=== PATIENT | female | born 1965 | race Two or more races ===

== ENCOUNTER 2023-07-04 12:35 | Inpatient (IN) | payer OTHER, MEDICAID ==
[~2023-07-04] VITALS: Ht 172.7 cm; Wt 129.0 kg
[2023-07-04] MEDS ORDERED: VANCOMYCIN PER PHARMACY 0 MG IV SCH ×3 (13:15→15:30)
[2023-07-04 13:28] LABS: Basophils # (auto) 0.1 10 ^3/uL (0-0.2); Basophils % (auto) 0.8 % (0.0-2.0); Eosinophils # (auto) 0.1 10 ^3/uL (0-0.8); Hematocrit 39.6 % (36.0-46.0); Hemoglobin 12.9 g/dL (12.2-16.2); Lymphocytes # (auto) 2.7 10 ^3/uL (0.4-5.4); Lymphocytes % (auto) 21.7 % (10.0-50.0); Mean Corpuscular Hemoglobin 27.3 pg (28.0-32.0); Mean Corpuscular Hgb Conc. 32.6 g/dL (32.0-36.0); Mean Corpuscular Volume 83.5 fL (80.0-100.0); Monocytes # (auto) 0.8 10 ^3/uL (0-1.3); Monocytes % (auto) 6.4 % (0.0-12.0); Neutrophils # (auto) 8.6 10 ^3/uL (1.6-8.6); Neutrophils % (auto) 70.1 % (37.0-80.0); Red Blood Cells 4.74 10^6/uL (4.0-5.20); Red Cell Distribution Width 15.9 % (11.8-14.3); White Blood Cell 12.2 10^3/uL (4.4-10.8)
[2023-07-04 13:45] LABS: Alanine Aminotransferase 21 U/L (7-40); Alkaline Phosphatase 219 U/L (46-116); Anion Gap 12 (5-15); Aspartate Aminotransferase 19 U/L (13-40); BUN/Creatinine Ratio 12.1 (10.0-20.0); Blood Urea Nitrogen 12 mg/dL (9-23); Calcium 9.3 mg/dL (8.5-10.1); Carbon Dioxide 23 mmol/L (20-30); Chloride 105 mmol/L (98-107); Glucose 193 mg/dL (74-106); Potassium 3.9 mmol/L (3.5-5.1); Sodium 140 mmol/L (136-145); Total Protein 5.9 g/dL (5.7-8.2)
[2023-07-04 13:47] LABS: Lactic Acid w/Reflex 3.8 mmol/L (0.4-2.0)
[2023-07-04 13:54] LABS: CRP High Sensitivity 7.46 mg/dL (<1.0)
[2023-07-04] MEDS ORDERED: ATOR20TA50 PO (14:23)
[2023-07-04] MEDS ORDERED: INSUINJ2 SC (14:23)
[2023-07-04] MEDS ORDERED: FINE20TA PO (14:23)
[2023-07-04] MEDS ORDERED: HYDR1TAB97 (14:23)
[2023-07-04] MEDS ORDERED: ONDA-188 PO (14:23)
[2023-07-04] MEDS ORDERED: METF-372 PO (14:23)
[2023-07-04] MEDS ORDERED: TIRZ7.5I SC (14:23)
[2023-07-04] MEDS ORDERED: DICL5GEL TOP (14:23)
[2023-07-04] MEDS ORDERED: ALBU108A5 PO (14:23)
[2023-07-04] MEDS ORDERED: ACET300T51 PO (14:23)
[2023-07-04] MEDS ORDERED: PREG200C59 PO (14:23)
[2023-07-04] MEDS ORDERED: PRAS10TA8 PO (14:23)
[2023-07-04] MEDS ORDERED: CONT1KIT21 (14:23)
[2023-07-04] MEDS ORDERED: GLIP5TAB12 PO (14:23)
[2023-07-04] MEDS ORDERED: FURO40TA4 PO (14:23)
[2023-07-04] MEDS ORDERED: LID35TP TOP (14:23)
[2023-07-04] MEDS ORDERED: Tirzepatide (Mounjaro) 7.5 MG INJECTION SC SCH (14:30)
[2023-07-04 14:37] LABS: Erythrocyte Sedimentation Rate 62 mm/hr (0-20)
[2023-07-04] MEDS: PIPERACILLIN-TAZOB 3.375GM 100 ML IV ONE (14:38)
[2023-07-04] MEDS: SODIUM CHLORIDE 0.9% 2,000 ML IV ONE (14:43)
[2023-07-04] MEDS ORDERED: DEXTROSE (50%) 50ML SYRG IV PRN (14:45)
[2023-07-04] MEDS ORDERED: ALBUTEROL SULF 2.5 MG/0.5ML(0.5%) NEB SOLN NEB PRN (14:45)
[2023-07-04] MEDS: SODIUM CHLORIDE 0.9% 1,000 ML IV SCH (15:55)
[2023-07-04 16:05] VITALS: BP 138/76; PULSE 97; RESP 16; TEMP 98.4; O2SAT 97
[2023-07-04 16:26] LABS: INR 0.96 (0.9-1.15); Prothrombin Time 10.1 sec (9.3-11.8)
[2023-07-04] MEDS: InsuLIN REG 1unit/0.01ml Soln (100units/ml) SC SCH (17:30)
[2023-07-04] MEDS: HYDROcodone-ACET 5/325MG TAB PO PRN (18:34)
[2023-07-04 18:55] VITALS: O2SAT 97
[2023-07-04 20:25] LABS: Lactic Acid w/Reflex 2.4 mmol/L (0.4-2.0)
[2023-07-04 20:30] VITALS: PULSE 80; RESP 18; O2SAT 96
[2023-07-04] MEDS: MORPHINE SULFATE INJ 2 MG/ml SYRG IV ONE (20:43)
[2023-07-04 22:00] VITALS: BP 127/76; PULSE 80; RESP 18; TEMP 97.9; O2SAT 96
[2023-07-04] MEDS: PREGABALIN 25 MG CAP PO SCH (22:00)
[2023-07-04] MEDS: PREGABALIN CAPSULE 75 MG CAP PO SCH (23:59)
[2023-07-05] VITALS (9 sets, daily range): BP systolic 103–131; BP diastolic 59–70; PULSE 70–104; RESP 17–20; TEMP 97.6–98.6; O2SAT 93–97
[2023-07-05] MEDS: ASCORBIC ACID 500 MG TAB PO SCH (00:01)
[2023-07-05] MEDS: ATORVASTATIN 20 MG TAB PO SCH (00:01)
[2023-07-05] MEDS: ACCU-CHEK COMFORT CURVE STRIP VI SCH (00:02)
[2023-07-05] MEDS: VANCOMYCIN 1GM/200ML 200 ML IV ONE (00:02)
[2023-07-05] MEDS: MORPHINE SULFATE INJ 2 MG/ml SYRG IV PRN (00:24)
[2023-07-05] MEDS: PIPERACILLIN-TAZOB 3.375GM 100 ML IV SCH (02:27)
[2023-07-05 06:55] LABS: Alanine Aminotransferase 20 U/L (7-40); Alkaline Phosphatase 187 U/L (46-116); Anion Gap 9 (5-15); BUN/Creatinine Ratio 12.7 (10.0-20.0); Blood Urea Nitrogen 10 mg/dL (9-23); Calcium 8.7 mg/dL (8.5-10.1); Carbon Dioxide 23 mmol/L (20-30); Chloride 104 mmol/L (98-107); Glucose 171 mg/dL (74-106); Potassium 3.3 mmol/L (3.5-5.1); Sodium 136 mmol/L (136-145)
[2023-07-05 06:56] LABS: Albumin 3.7 g/dL (3.2-4.8); Aspartate Aminotransferase 19 U/L (13-40)
[2023-07-05 06:57] LABS: Bilirubin, Total 1.2 mg/dL (0.2-1.0); Total Protein 6.1 g/dL (5.7-8.2)
[2023-07-05 08:36] LABS: Basophils # (auto) 0.1 10 ^3/uL (0-0.2); Hemoglobin 11.1 g/dL (12.2-16.2); Monocytes # (auto) 0.8 10 ^3/uL (0-1.3); Monocytes % (auto) 8.2 % (0.0-12.0); Red Cell Distribution Width 15.9 % (11.8-14.3)
[2023-07-05 08:38] LABS: Basophils % (auto) 0.7 % (0.0-2.0); Eosinophils # (auto) 0.1 10 ^3/uL (0-0.8); Eosinophils % (auto) 1.4 % (0.0-7.0); Hematocrit 33.6 % (36.0-46.0); Lymphocytes % (auto) 19.8 % (10.0-50.0); Mean Corpuscular Hemoglobin 27.3 pg (28.0-32.0); Mean Corpuscular Hgb Conc. 32.9 g/dL (32.0-36.0); Mean Corpuscular Volume 82.8 fL (80.0-100.0); Neutrophils % (auto) 69.9 % (37.0-80.0); Nucleated Red Blood Cells % 0.1 %; Red Blood Cells 4.06 10^6/uL (4.0-5.20)
[2023-07-05] MEDS: FINERENONE 20 MG PO SCH (10:00)
[2023-07-05] MEDS: PRASUGREL HCL 10 MG TAB PO SCH (10:14)
[2023-07-05] MEDS: ENOXAPARIN SOD 40 MG/0.4 ML SYRINGE SC SCH (10:15)
[2023-07-05] MEDS: MULTIPLE VITAMIN TAB PO SCH (10:15)
[2023-07-05] MEDS: ZINC SULFATE 220mg CAP or TAB PO SCH (10:15)
[2023-07-05] MEDS: VANCOMYCIN 1GM/200ML 200 ML IV SCH (11:27)
[2023-07-05] MEDS: POTASSIUM CHL 20 Meq TABLET PO ONE (13:54)
[2023-07-05] MEDS ORDERED: HYDR-4795 PO (15:43)
[2023-07-05] MEDS ORDERED: POTA1TAB61 PO (15:44)
[2023-07-05] MEDS: DAKINS QUARTER STR 0.125% (NaHypochlorite) 473 ML TOPICAL SOL TOP SCH (22:21)
[2023-07-06] VITALS (9 sets, daily range): BP systolic 103–149; BP diastolic 56–94; PULSE 75–88; RESP 17–19; TEMP 97.2–99; O2SAT 95–97
[2023-07-06] MEDS: VANCOMYCIN 1GM/200ML 200 ML IV ONE (09:10)
[2023-07-06] MEDS: VANCOMYCIN 1GM/200ML 200 ML IV SCH (21:24)
[2023-07-07] VITALS (8 sets, daily range): BP systolic 114–143; BP diastolic 73–87; PULSE 67–80; RESP 17–19; TEMP 97.5–98.3; O2SAT 95–97
[2023-07-07] MEDS ORDERED: MISCCAP PO (15:23)
[2023-07-08] MEDS: VANCOMYCIN 1GM/200ML 200 ML IV SCH (01:11)
[2023-07-08] MEDS: ACETAMINOPHEN 325 MG TAB PO PRN (04:12)
[2023-07-08 05:00] VITALS: BP 121/65; PULSE 56; RESP 18; TEMP 97.5; O2SAT 96
[2023-07-08 08:00] VITALS: BP 112/56; PULSE 64; RESP 17; TEMP 97.5; O2SAT 96
[2023-07-08 09:00] VITALS: BP_SYST 112; BP_SYST 145; BP_DIAS 56; BP_DIAS 76; PULSE 64; PULSE 82; RESP 16; RESP 17; TEMP 97.5; TEMP 97.7; O2SAT 94; O2SAT 96
[2023-07-08 12:55] VITALS: BP 118/61; PULSE 62; RESP 18; TEMP 97.6; O2SAT 97
[2023-07-08 16:45] VITALS: BP 126/56; PULSE 71; RESP 18; TEMP 97.6; O2SAT 96
[2023-07-08 22:00] VITALS: BP 152/78; PULSE 76; RESP 20; TEMP 97.5; O2SAT 95
[2023-07-09] VITALS (9 sets, daily range): BP systolic 119–143; BP diastolic 57–89; PULSE 57–83; RESP 16–18; TEMP 97.4–98.1; O2SAT 94–98
[2023-07-09 06:29] LABS: Basophils # (auto) 0 10 ^3/uL (0-0.2); Basophils % (auto) 0.8 % (0.0-2.0); Eosinophils # (auto) 0.1 10 ^3/uL (0-0.8); Eosinophils % (auto) 2.2 % (0.0-7.0); Hematocrit 36.8 % (36.0-46.0); Hemoglobin 11.9 g/dL (12.2-16.2); Lymphocytes # (auto) 2.5 10 ^3/uL (0.4-5.4); Lymphocytes % (auto) 37.9 % (10.0-50.0); Mean Corpuscular Hemoglobin 27.1 pg (28.0-32.0); Mean Corpuscular Hgb Conc. 32.5 g/dL (32.0-36.0); Mean Corpuscular Volume 83.6 fL (80.0-100.0); Monocytes # (auto) 0.4 10 ^3/uL (0-1.3); Monocytes % (auto) 6.8 % (0.0-12.0); Neutrophils # (auto) 3.4 10 ^3/uL (1.6-8.6); Neutrophils % (auto) 52.3 % (37.0-80.0); Nucleated Red Blood Cells % 0.3 %; Red Cell Distribution Width 15.4 % (11.8-14.3); White Blood Cell 6.5 10^3/uL (4.4-10.8)
[2023-07-09 06:41] LABS: Chloride 111 mmol/L (98-107); Potassium 3.6 mmol/L (3.5-5.1); Sodium 141 mmol/L (136-145)
[2023-07-09 06:42] LABS: Anion Gap 8 (5-15); Carbon Dioxide 22 mmol/L (20-30)
[2023-07-09 06:43] LABS: Calcium 8.8 mg/dL (8.7-10.4)
[2023-07-09 06:47] LABS: Glucose 171 mg/dL (74-106)
[2023-07-09 06:48] LABS: BUN/Creatinine Ratio 7.3 (10.0-20.0); Blood Urea Nitrogen 6 mg/dL (9-23); Magnesium 1.9 mg/dL (1.6-2.6)
[2023-07-10 05:00] VITALS: BP 152/86; PULSE 73; RESP 16; TEMP 98.4; O2SAT 97
[2023-07-10 06:21] LABS: Basophils # (auto) 0.1 10 ^3/uL (0-0.2); Basophils % (auto) 0.9 % (0.0-2.0); Eosinophils # (auto) 0.1 10 ^3/uL (0-0.8); Eosinophils % (auto) 1.9 % (0.0-7.0); Hematocrit 36.8 % (36.0-46.0); Lymphocytes # (auto) 2.5 10 ^3/uL (0.4-5.4); Lymphocytes % (auto) 35.5 % (10.0-50.0); Mean Corpuscular Hemoglobin 27.3 pg (28.0-32.0); Mean Corpuscular Hgb Conc. 32.7 g/dL (32.0-36.0); Mean Corpuscular Volume 83.5 fL (80.0-100.0); Monocytes # (auto) 0.4 10 ^3/uL (0-1.3); Monocytes % (auto) 5.5 % (0.0-12.0); Neutrophils % (auto) 56.2 % (37.0-80.0); Nucleated Red Blood Cells % 0.1 %; Red Blood Cells 4.41 10^6/uL (4.0-5.20); Red Cell Distribution Width 15.5 % (11.8-14.3); White Blood Cell 7.2 10^3/uL (4.4-10.8)
[2023-07-10 06:31] LABS: Alanine Aminotransferase 46 U/L (7-40); Alkaline Phosphatase 248 U/L (46-116); Anion Gap 8 (5-15); Aspartate Aminotransferase 31 U/L (13-40); BUN/Creatinine Ratio 8.6 (10.0-20.0); Blood Urea Nitrogen 7 mg/dL (9-23); Calcium 9.2 mg/dL (8.5-10.1); Carbon Dioxide 24 mmol/L (20-30); Chloride 111 mmol/L (98-107); Glucose 197 mg/dL (74-106); INR 0.98 (0.9-1.15); Partial Thromboplastin Time 29.1 SEC (24.5-34.5); Potassium 3.6 mmol/L (3.5-5.1); Prothrombin Time 10.3 sec (9.3-11.8); Sodium 143 mmol/L (136-145)
[2023-07-10 06:32] LABS: Albumin 3.6 g/dL (3.2-4.8); Bilirubin, Total 0.4 mg/dL (0.2-1.0); Total Protein 6.1 g/dL (5.7-8.2)
[2023-07-10 07:55] LABS: Urine Bacteria NONE SEEN /hpf (None Seen); Urine Blood 1+ /uL (Negative); Urine Clarity Clear (Clear); Urine Color Colorless (Yellow); Urine Protein, UAD Negative (Negative); Urine Specific Gravity 1.013 (1.001-1.035); Urine Urobilinogen Normal (Negative); Urine WBC 1 /hpf (0 - 5); Urine pH 5.5 (5.0-8.0)
[2023-07-10 09:08] VITALS: BP 150/82; PULSE 67; RESP 21; TEMP 97.5; O2SAT 96
[2023-07-10 13:00] VITALS: BP 134/66; PULSE 66; RESP 20; TEMP 97.9; O2SAT 96
[2023-07-10] MEDS ORDERED: GLYCOPYRROLATE 0.2 MG/ML 1ML VIAL ONE (13:28)
[2023-07-10] MEDS ORDERED: PROPOFOL 10 MG/ML 20 ML IV ONE (13:28)
[2023-07-10] MEDS ORDERED: MIDAZOLAM HCL 2MG/2ML 2ml VIAL (1mg/ml) ONE (13:28)
[2023-07-10] MEDS ORDERED: fentaNYL CITRATE 100 MCG/2 ML VL ONE (13:28)
[2023-07-10] MEDS ORDERED: ONDANSETRON HCL 4 MG/2 ML VIAL ONE (13:28)
[2023-07-10] MEDS: LIDOCAINE 1% (LOCAL ANESTH.) PF 5ml SDV ID ONE (13:45)
[2023-07-10] MEDS ORDERED: KETOROLAC TROMETH 30 MG/ML 1ML VIAL ONE (15:33)
[2023-07-10] MEDS ORDERED: MEPERIDINE HCL (25 MG/ML) 1ML VIAL ONE (15:33)
[2023-07-10 15:40] VITALS: PULSE 79; RESP 16; O2SAT 99
[2023-07-10] MEDS ORDERED: ONDANSETRON HCL 4 MG/2 ML VIAL IV PRN (16:00)
[2023-07-10] MEDS ORDERED: HYDROmorphone HCL 2 MG/ML VL/or syr IV PRN (16:00)
[2023-07-10] MEDS: HYDROmorphone HCL 2 MG/ML VL/or syr IV ONE ×2 (16:10→16:25)
[2023-07-10] MEDS ORDERED: KETAMINE 50mg/ML 1ml syringe IV ONE (16:38)
[2023-07-10 20:00] VITALS: BP 128/66; PULSE 76; RESP 17; TEMP 97.8; O2SAT 93
[2023-07-10] MEDS: FLORASTOR (S. BOULARDII) 250 MG CAP PO SCH (21:44)
[2023-07-10] MEDS: SODIUM CHLOR 0.9% PF (SALINE LOCK) 10ML VIAL/SYR IV SCH (21:45)
[2023-07-10 22:00] VITALS: BP 128/66; PULSE 76; RESP 17; TEMP 97.8; O2SAT 93
[2023-07-11] MEDS: ACCU-CHEK COMFORT CURVE STRIP VI ONE (00:19)
[2023-07-11] MEDS: CYCLOBENZAPRINE HCL 10 MG TAB ONE (00:19)
[2023-07-11] MEDS: CYCLOBENZAPRINE HCL 10 MG TAB PO ONE (00:19)
[2023-07-11 05:00] VITALS: BP 120/59; PULSE 72; RESP 18; TEMP 97.4; O2SAT 94
[2023-07-11 09:00] VITALS: BP 115/66; PULSE 68; RESP 18; TEMP 97.9; O2SAT 94
[2023-07-11 13:00] VITALS: BP 131/62; PULSE 68; RESP 20; TEMP 98; O2SAT 96
[2023-07-11] MEDS ORDERED: DEXTROSE (50%) 50ML SYRG IV PRN (13:45)
[2023-07-11] MEDS: MORPHINE SULFATE INJ 2 MG/ml SYRG IV ONE (14:14)
[2023-07-11 17:00] VITALS: BP 120/60; PULSE 74; RESP 18; TEMP 98.4; O2SAT 96
[2023-07-11] MEDS: InsuLIN REG 1unit/0.01ml Soln (100units/ml) SC SCH ×2 (18:33→23:39)
[2023-07-11] MEDS: ACCU-CHEK COMFORT CURVE STRIP VI SCH (18:33)
[2023-07-11 22:00] VITALS: BP 128/66; PULSE 80; RESP 19; TEMP 97.8; O2SAT 96
[2023-07-12 05:00] VITALS: BP 133/64; PULSE 63; RESP 20; TEMP 97.6; O2SAT 95
[2023-07-12 07:29] LABS: Alanine Aminotransferase 34 U/L (7-40); Alkaline Phosphatase 220 U/L (46-116); Calcium 9.3 mg/dL (8.5-10.1); Carbon Dioxide 26 mmol/L (20-30); Chloride 109 mmol/L (98-107); Glucose 178 mg/dL (74-106)
[2023-07-12 07:30] LABS: Anion Gap 8 (5-15); BUN/Creatinine Ratio 12.2 (10.0-20.0); Blood Urea Nitrogen 9 mg/dL (9-23); Potassium 3.5 mmol/L (3.5-5.1); Sodium 143 mmol/L (136-145)
[2023-07-12 07:31] LABS: Albumin 3.7 g/dL (3.2-4.8); Aspartate Aminotransferase 19 U/L (13-40); Bilirubin, Total 0.6 mg/dL (0.2-1.0); Total Protein 6.2 g/dL (5.7-8.2)
[2023-07-12 08:00] VITALS: PULSE 59; RESP 18; O2SAT 96
[2023-07-12 09:00] VITALS: BP 129/61; PULSE 59; RESP 18; TEMP 98.7; O2SAT 96
[2023-07-12] MEDS: DAPTOMYCIN IV SCH (10:00)
[2023-07-12] MEDS: OXYCODONE W/ ACETAMINOPHEN 5/325MG TABLET PO PRN (10:32)
[2023-07-12] MEDS ORDERED: SACC1CAP3 PO (11:49)
[2023-07-12] MEDS ORDERED: OXYC-963 PO (11:49)
[2023-07-12] MEDS: DAPTOmycin 1,000 MG in SODIUM CHL 0.9% 50 ML IV SCH (11:51)
[2023-07-12] MEDS ORDERED: AMPICILLIN & SULBACTAM SODIUM 3 GM in SODIUM CHL 0.9% 100 ML IV SCH (12:45)
[2023-07-12 13:00] VITALS: BP 133/78; PULSE 73; RESP 18; TEMP 97.9; O2SAT 94
[2023-07-12] MEDS: AMPICILLIN & SULBACTAM SODIUM 3 GM in SODIUM CHL 0.9% 100 ML IV SCH (14:42)
[2023-07-12 17:00] VITALS: BP 148/78; PULSE 78; RESP 18; TEMP 97.4; O2SAT 96
[2023-07-12 22:00] VITALS: BP 164/78; PULSE 77; RESP 18; TEMP 97.8; O2SAT 95
[2023-07-13 05:00] VITALS: BP 112/57; PULSE 62; RESP 18; TEMP 97.5; O2SAT 95
[2023-07-13 08:00] VITALS: PULSE 60; RESP 18
[2023-07-13 09:00] VITALS: BP 122/82; PULSE 80; RESP 18; TEMP 97.8; O2SAT 95
[2023-07-13 12:20] VITALS: BP 126/64; PULSE 61; RESP 18; TEMP 97.7; O2SAT 97
[2023-07-13 16:50] VITALS: BP 129/64; PULSE 67; RESP 18; TEMP 97.7; O2SAT 96
== END 2023-07-13 17:54 | disposition home health service (06) | DRG 622 ==
LOC: ER 12:35 → OVERFLOW 14:18 → CENTRAL 18:25
PROVIDERS: ADMIT Nurse Practitioner Family; ATTEND Nurse Practitioner Acute Care
PROC: 05HY33Z Insertion of Infusion Device into Upper Vein, Percutaneous Approach (ICD-10-PCS; 2023-07-10)
PROC: 0JBR0ZZ Excision of Left Foot Subcutaneous Tissue and Fascia, Open Approach (ICD-10-PCS; principal; 2023-07-12)
DX: E11.69 Type 2 diabetes mellitus with other specified complication (principal); A41.9 Sepsis, unspecified organism; M86.672 Other chronic osteomyelitis, left ankle and foot; L03.116 Cellulitis of left lower limb; L97.429 Non-pressure chronic ulcer of left heel and midfoot with unspecified severity; Z68.41 Body mass index [BMI] 40.0-44.9, adult; E11.621 Type 2 diabetes mellitus with foot ulcer; L97.529 Non-pressure chronic ulcer of other part of left foot with unspecified severity; I10 Essential (primary) hypertension; E66.01 Morbid (severe) obesity due to excess calories; E11.65 Type 2 diabetes mellitus with hyperglycemia; E78.5 Hyperlipidemia, unspecified; Z82.3 Family history of stroke; Z82.49 Family history of ischemic heart disease and other diseases of the circulatory system; Z83.3 Family history of diabetes mellitus; Z90.710 Acquired absence of both cervix and uterus; Z88.8 Allergy status to other drugs, medicaments and biological substances
CPT/HCPCS: 36415; 36569; 71045; 73718; 80048; 80053; 80202; 81001; 82565; 82962; 83036; 83605; 83735; 83880; 84484; 85025; 85610; 85652; 85730; 86141; 86850; 86900; 86901; 87040; 87070; 87075; 87077; 87186; 87205; 93926; G0378; J1815; J1885; J2250; J2405; J2543; J2704

== ENCOUNTER → 2023-09-19 | Outpatient (CLI) | payer OTHER, MEDICAID ==
[~2023-09-19] MED LIST: ACET300T51 PO; ALBU108A5 PO; ATOR20TA50 PO; CONT1KIT21; DICL5GEL TOP; FINE20TA PO; FURO40TA4 PO; GLIP5TAB21 PO; HYDR-4795 PO; INSUINJ2 SC; LID35TP TOP; METF-372 PO; MISCCAP PO; ONDA-188 PO; OXYC-963 PO; POTA-215 PO; PRAS10TA8 PO; PREG200C36 PO; SACC1CAP3 PO; TIRZ7.5I SC
== END | disposition home or self-care (01) ==
LOC: LAB 08:16
PROVIDERS: ATTEND Podiatrist
DX: E11.42 Type 2 diabetes mellitus with diabetic polyneuropathy (principal)
CPT/HCPCS: 87077; 87186; 87205

== ENCOUNTER → 2023-11-08 | Outpatient (CLI) | payer OTHER ==
[~2023-11-08] VITALS: Ht 172.7 cm; Wt 117.9 kg
[~2023-11-08] MED LIST changes: +ADENOSINE 90 MG/30 ML INJ IV ONE; +ADENOSINE 99 MG in GIVE UN-DILUTED 0 ML IV ONE
== END | disposition home or self-care (01) ==
LOC: Rad HDHVI 09:46
PROVIDERS: ATTEND Internal Medicine Cardiovascular Disease
DX: I11.0 Hypertensive heart disease with heart failure (principal); I25.110 Atherosclerotic heart disease of native coronary artery with unstable angina pectoris; R07.9 Chest pain, unspecified; I25.2 Old myocardial infarction; R42 Dizziness and giddiness; J96.10 Chronic respiratory failure, unspecified whether with hypoxia or hypercapnia; J44.9 Chronic obstructive pulmonary disease, unspecified; E11.51 Type 2 diabetes mellitus with diabetic peripheral angiopathy without gangrene; E11.621 Type 2 diabetes mellitus with foot ulcer; E78.00 Pure hypercholesterolemia, unspecified; Z82.49 Family history of ischemic heart disease and other diseases of the circulatory system
CPT/HCPCS: 78452; 93005; 96374; 96375; A9500; J0153

== ENCOUNTER → 2023-11-12 | Outpatient (CLI) | payer OTHER ==
[~2023-11-12] MED LIST changes: -ADENOSINE 90 MG/30 ML INJ IV ONE; -ADENOSINE 99 MG in GIVE UN-DILUTED 0 ML IV ONE
== END | disposition home or self-care (01) ==
LOC: Rad HDHVI 15:57
PROVIDERS: ATTEND Internal Medicine Cardiovascular Disease
DX: I34.81 Nonrheumatic mitral (valve) annulus calcification (principal); R07.9 Chest pain, unspecified; R42 Dizziness and giddiness
CPT/HCPCS: 93306

== ENCOUNTER → 2024-06-05 | Outpatient (CLI) | payer OTHER, MEDICAID ==
[2024-06-05 15:49] LABS: Basophils # (auto) 0.1 10 ^3/uL (0-0.2); Basophils % (auto) 1.2 % (0.0-2.0); Eosinophils # (auto) 0.2 10 ^3/uL (0-0.8); Eosinophils % (auto) 1.3 % (0.0-7.0); Hematocrit 43.4 % (36.0-46.0); Hemoglobin 14.3 g/dL (12.2-16.2); Lymphocytes # (auto) 3.8 10 ^3/uL (0.4-5.4); Lymphocytes % (auto) 31.7 % (10.0-50.0); Mean Corpuscular Hemoglobin 28.4 pg (28.0-32.0); Mean Corpuscular Volume 85.9 fL (80.0-100.0); Monocytes # (auto) 0.5 10 ^3/uL (0-1.3); Monocytes % (auto) 4.4 % (0.0-12.0); Neutrophils # (auto) 7.3 10 ^3/uL (1.6-8.6); Neutrophils % (auto) 61.4 % (37.0-80.0); Nucleated Red Blood Cells % 0.2 %; Platelet Count (auto) 288 10^3/uL (140-450); Red Blood Cells 5.06 10^6/uL (4.0-5.20); Red Cell Distribution Width 15.3 % (11.8-14.3); White Blood Cell 11.9 10^3/uL (4.4-10.8)
[2024-06-05 16:13] LABS: Alanine Aminotransferase 30 U/L (7-40); Albumin 4.6 g/dL (3.2-4.8); Anion Gap 10 (5-15); Aspartate Aminotransferase 27 U/L (13-40); BUN/Creatinine Ratio 10.5 (10.0-20.0); Bilirubin, Total 0.9 mg/dL (0.2-1.0); Blood Urea Nitrogen 11 mg/dL (9-23); Calcium 10.1 mg/dL (8.7-10.4); Carbon Dioxide 24 mmol/L (20-31); Potassium 4.4 mmol/L (3.5-5.1); Sodium 142 mmol/L (136-145); Total Protein 7.2 g/dL (5.7-8.2)
[2024-06-05 16:22] LABS: Alkaline Phosphatase 172 U/L (46-116); Chloride 108 mmol/L (98-107); Glucose 113 mg/dL (74-106)
== END | disposition home or self-care (01) ==
LOC: LAB 15:27
PROVIDERS: ATTEND Podiatrist
DX: E11.9 Type 2 diabetes mellitus without complications (principal)
CPT/HCPCS: 36415; 80053; 85025

== ENCOUNTER 2024-12-31 13:56 | Outpatient (CLI) | payer OTHER, MEDICAID | END 2024-12-31 17:00 | disposition home or self-care (01) | LOC: Rad HDHVI 13:56 | PROVIDERS: ATTEND Internal Medicine Cardiovascular Disease | DX: I51.7 Cardiomegaly (principal); R42 Dizziness and giddiness | CPT/HCPCS: 93306 ==

== ENCOUNTER 2025-01-04 13:48 | Outpatient (CLI) | payer OTHER, MEDICAID ==
[~2025-01-04] VITALS: Ht 172.7 cm; Wt 113.4 kg
[2025-01-04] MEDS ORDERED: ADENOSINE 90 MG/30 ML INJ IV ONE (14:15)
[2025-01-04] MEDS ORDERED: ADENOSINE 95 MG in GIVE UN-DILUTED 0 ML IV ONE (16:45)
== END 2025-01-04 17:00 | disposition home or self-care (01) ==
LOC: Rad HDHVI 13:48
PROVIDERS: ATTEND Internal Medicine Cardiovascular Disease
DX: I25.10 Atherosclerotic heart disease of native coronary artery without angina pectoris (principal); I13.0 Hypertensive heart and chronic kidney disease with heart failure and stage 1 through stage 4 chronic kidney disease, or unspecified chronic kidney disease; I50.32 Chronic diastolic (congestive) heart failure; E11.22 Type 2 diabetes mellitus with diabetic chronic kidney disease; N18.9 Chronic kidney disease, unspecified; E11.42 Type 2 diabetes mellitus with diabetic polyneuropathy; J44.9 Chronic obstructive pulmonary disease, unspecified; I25.2 Old myocardial infarction; E78.00 Pure hypercholesterolemia, unspecified; R07.89 Other chest pain; R42 Dizziness and giddiness; Z82.49 Family history of ischemic heart disease and other diseases of the circulatory system
CPT/HCPCS: 78452; 93017; A9500; J0153

== ENCOUNTER 2025-02-11 22:57 | Inpatient (IN) | payer MEDICARE, MEDICAID ==
[~2025-02-11] VITALS: Ht 172.7 cm; Wt 116.6 kg
[2025-02-11] MEDS: SODIUM CHLORIDE 0.9% 1,000 ML IV ONE (01:15)
[2025-02-11] MEDS: CEFEPIME 2GM/50ML NS 50 ML IV ONE (02:15)
[2025-02-11] MEDS: VANCOMYCIN 1GM/250ML KIT 250 ML IV SCH (02:30)
[2025-02-11] MEDS ORDERED: VANCOMYCIN PER PHARMACY 0 MG IV SCH (23:15)
--- NOTE | 2025-02-11 23:25 | ED.PDOC ---
Back pain HPI HPI Comments 59-year-old female with diabetes mellitus, hypertension, hyperlipidemia, CAD status post SANDRA, multiple I and D's left foot, osteomyelitis, recent Left foot first metatarsal osteotomy (35764), Left foot EHL tenotomy (08715) by Dr. Reynolds 02/03/25 presented to the ER with a chief complaint of left lower extremity swelling, pain for the past day. Patient recently completed her doxycycline p.o. therapy, she started experiencing lower extremity swelling, intractable pain and worsening redness of the past day. Associated symptoms include drainage which is purulent from the 1st metatarsal base, patient is under palliative care at home. She denies fever, chills, nausea, vomiting, shortness of breath or chest pain at this time. She also experienced a fall in the past week, and landed on her coccyx, did not hit her head, reports lower back pain but is able to ambulate. Reports being dizzy and lightheaded but did not lose consciousness. Left lower extremity swollen, erythematous with draining wound at the base of the 1st MTP. Passive and active range of motion intact without pain. No sensation in the lower extremity up to the level of knee but motor function is intact. Warmth noted. On arrival to the ER, patient was tachycardic, saturating 93 on room air. IV fluids, blood and wound cultures, CBC, CMP, IV antibiotics started. Chief Complaint: Lower Extremity Time Seen by MD: 22:59 Primary Care Provider: DEACON Reviewed Notes: Nurses Notes Allergies: Coded Allergies: Gabapentin (Verified Allergy, Severe, 07/04/23) Hydrochlorothiazide (Verified Allergy, Severe, 07/05/23) Home Meds Active Scripts Yeast (S. Boulardii)(S. Cerevi (Probiotic) 250 Mg Cap, 250 MG PO DAILY for 30 Days, #30 CAP Prov:SALCHEOONICKERSON VIDEO MACHINES MECHANIC 07/12/23 Oxycodone W/ Acetaminophen (Oxycodone/Acetaminophen 10-300 mg) 1 Tab Tab, 1 TAB PO Q6HP PRN for 5 Days, #20 TAB Prov:SALBINO,NICKERSON VIDEO MACHINES MECHANIC 07/12/23 Reported Medications Probiotic Product (Probiotic Blend) 1 Cap Cap, 1 CAP PO DAILY, CAP 07/07/23 Potassium Chloride (Klor-Con M10) 10 Meq Tab, 1 TAB PO DAILY 07/05/23 Hydrocodone-Acetaminophen (Hydrocodone Bitartrate/AC 7.5-325 mg) 1 Tab Tab, 1 TAB PO TID PRN 07/05/23 Glipizide (Glipizide) 5 Mg Tab, 1 TAB PO BID 07/04/23 Furosemide (Furosemide) 40 Mg Tab, 1 TAB PO DAILY 07/04/23 Acetaminophen W/ Codeine (Acetaminophen/Codeine) 1 Tab Tab, 1 TAB PO Q6HR PRN for Post-op Pain 07/04/23 Ondansetron HCl (Ondansetron Hydrochloride) 4 Mg Tab, 1 TAB PO BID 07/04/23 Tirzepatide (Mounjaro) 7.5 Mg/0.5 Ml Inj, 7.5 MG SC QWEEKLY 07/04/23 Finerenone (Kerendia) 20 Mg Tab, 1 TAB PO DAILY 07/04/23 Prasugrel HCl (Prasugrel) 10 Mg Tab, 1 TAB PO DAILY 07/04/23 Metformin Hydrochloride (Metformin Hcl) 1,000 Mg Tab, 1 TAB PO BID 07/04/23 Lidocaine Hcl (Lidocaine) 5 % Oin, 1 APPLIC TOP QID Apply 2-3 grams topically to the affected area four times daily 07/04/23 Atorvastatin Calcium (ATORVASTATIN CALCIUM) 20 Mg Tab, 1 TAB PO DAILY 07/04/23 Albuterol Sulfate (Albuterol Sulfate Hfa) 108 Mcg/Act Aer, 2 PUFF PO Q6-8HR PRN 07/04/23 Insulin NPH (Human) (Isophane) (Humulin N) 100 Unit/Ml Inj, 95 UNIT SC DAILY 07/04/23 Continuous Blood Glucose Syste (Freestyle Leroy 2/Sensor/) 1 Kit Kit 07/04/23 Diclofenac Sodium (Actinic Ker (Diclofenac Sodium) 3 % Gel, 1 APPLIC TOP BID Apply 2-3 grams topically to the affected area twice daily as needed 07/04/23 Pregabalin (Pregabalin) 200 Mg Cap, 1 CAP PO TID 07/04/23 Information Source: Patient, Relative (Child) Mode of Arrival: Wheelchair Past Medical History PAST MEDICAL HISTORY: DM, HTN Past Medical History (Other): Left foot osteomyelitis and I and D Constitutional: denies: chills, diaphoresis, fatigue, fever, malaise, sweats, weakness, others EENTM: denies: blurred vision, double vision, ear bleeding, ear discharge, ear drainage, ear pain, ear ringing, eye pain, eye redness, hearing loss, mouth pain, mouth swelling, nasal discharge, nose bleeding, nose congestion, nose pain, photophobia, tearing, throat pain, throat swelling, voice changes, others Respiratory: denies: cough, hemoptysis, orthopnea, SOB at rest, shortness of breath, SOB with excertion, stridor, wheezing, others Cardiovascular: denies: chest pain, dizzy spells, diaphoresis, Dyspnea on exertion, edema, irregular heart beat, left arm pain, lightheadedness, palpitations, PND, syncope, others Gastrointestinal: denies: abdomen distended, abdominal pain, blood streaked bowels, constipated, diarrhea, dysphagia, difficulty swallowing, hematemesis, melena, nausea, poor appetite, poor fluid intake, rectal bleeding, rectal pain, vomiting, others Genitourinary: denies: abnormal vagina bleeding, burning, dyspareunia, dysuria, flank pain, frequency, hematuria, incontinence, pain, , vagina discharge, urgency, others Neurological: denies: dizziness, fainting, headache, left sided numbness, left sided weakness, numbness, paresthesia, pre-existing deficit, right sided numbness, right sided weakness, seizure, speech problems, tingling, tremors, weakness, others Musculoskeletal: reports: back pain Integumetry: reports: change in color, wounds Allergic/Immunocompromised: denies: Difficulty Healing, Frequent Infections, Hives, Itching, others Hematologic/Lymphatic: denies: anemia, blood clots, easy bleeding, easy bruising, swollen glands, others Endocrine: denies: excessive hunger, excessive sweating, excessive thirst, excessive urination, flushing, intolerance to cold, intolerance to heat, unexpl ained weight gain, unexplained weight loss, others Psychiatric: denies: anxiety, bipolar disorder, depression, hopeless, panic disorder, schizophrenia, sleepless, suicidal, others Physical Exam General Appearance: No Apparent Distress, Normal HEENT: Normal ENT Inspection, Pharynx Normal, TMs Normal Neck: Full Range of Motion, Non-Tender, Normal, Normal Inspection Respiratory: Chest Non-Tender, Lungs Clear, No Accessory Muscle Use, No Respiratory Distress, Normal Breath Sounds Cardiovascular: No Edema, No JVD, No Murmur, No Gallop, Normal Peripheral Pulses, Regular Rate/Rhythm Breast Exam: Deferred Gastrointestinal: No Organomegaly, Non Tender, No Pulsatile Mass, Normal Bowel Sounds, Soft Genitalia: Deferred Pelvic: Deferred Rectal: Deferred Extremities: No calf tenderness, Normal capillary refill, Normal range of motion, Swelling, Tender, Other (Left lower extremity swollen, erythematous with draining wound at the base of the 1st MTP. Passive and active range of motion intact without pain. No sensation in the lower extremity up to the level of knee but motor function is intact. Warmth noted.) Musculoskeletal : Apperance: Normal Neurologic: Alert, nurse care manager II-XII nml as Tested, No Motor Deficits, Normal Affect, Normal Mood, No Sensory Deficits Cerebellar Function: Normal Reflexes: Normal Skin: Dry, Normal Color, Warm Lymphatic: No Adenopathy Was a procedure done? Was a procedure done?: No Back Pain Differential Dx Differential Diagnosis: Other Other Differential Diagnosis Cellulitis/osteomyelitis/sepsis/purulent draining wound X-Ray, Labs, Meds, VS Vital Signs Date Time Temp Pulse Resp B/P (MAP) Pulse Ox O2 Delivery O2 Flow Rate FiO2 02/11/25 23:00 97.7 102 18 114/78 93 97.7 Lab Test 02/11/25 23:38 Range/Units White Blood Count 10.6 4.4-10.8 10^3/uL Red Blood Count 4.53 4.0-5.20 10^6/uL Hemoglobin 13.1 12.2-16.2 g/dL Hematocrit 38.9 36.0-46.0 % Mean Corpuscular Volume 86.0 80.0-100.0 fL Mean Corpuscular Hemoglobin 29.0 28.0-32.0 pg Mean Corpuscular Hemoglobin Concent 33.8 32.0-36.0 g/dL Red Cell Distribution Width 14.8 H 11.8-14.3 % Platelet Count 272 140-450 10^3/uL Mean Platelet Volume 8.1 6.9-10.8 fL Neutrophils (%) (Auto) 67.3 37.0-80.0 % Lymphocytes (%) (Auto) 24.5 10.0-50.0 % Monocytes (%) (Auto) 6.2 0.0-12.0 % Eosinophils (%) (Auto) 1.6 0.0-7.0 % Basophils (%) (Auto) 0.4 0.0-2.0 % Neutrophils # (Auto) 7.1 1.6-8.6 10 ^3/uL Lymphocytes # (Auto) 2.6 0.4-5.4 10 ^3/uL Monocytes # (Auto) 0.7 0-1.3 10 ^3/uL Eosinophils # (Auto) 0.2 0-0.8 10 ^3/uL Basophils # (Auto) 0 0-0.2 10 ^3/uL Nucleated Red Blood Cells 0.0 % Sodium Level 139 136-145 mmol/L Potassium Level 3.9 3.5-5.1 mmol/L Chloride Level 101 98-107 mmol/L Carbon Dioxide Level 26 20-31 mmol/L Anion Gap 12 5-15 Blood Urea Nitrogen 16 9-23 mg/dL Creatinine 1.04 H 0.550-1.02 mg/dL Glomerular Filtration Rate Calc 63 >90 mL/min BUN/Creatinine Ratio 15.4 10.0-20.0 Serum Glucose 109 H 74-106 mg/dL Lactic Acid Level 1.9 0.4-2.0 mmol/L Calcium Level 8.9 8.7-10.4 mg/dL Total Bilirubin 1.4 H 0.2-1.0 mg/dL Aspartate Amino Transferase (AST) 20 13-40 U/L Alanine Aminotransferase (ALT) 22 7-40 U/L Alkaline Phosphatase 190 H 46-116 U/L C-Reactive Protein High Sensitivity Pending Total Protein 6.8 5.7-8.2 g/dL Albumin 4.2 3.2-4.8 g/dL X-Ray, Labs, Meds, VS Comment CBC unremarkable with no left shift, BNP unremarkable, lactic 1.9 CT lower extremity pending Patient in intractable pain Images Reviewed?: Images reviewed and evaluated by me Time of 1ST Reevaluation: 00:00 Reevaluation 1ST: Unchanged Time of 2ND Reevaluation: 01:00 Reevaluation 2ND: Unchanged Consultation: PCP, Other (Dog Or Horse Racing Official) Patient Education/Counseling: Diagnosis, Treatment, Prognosis, Need For Follow Up Family Education/Counseling: Diagnosis, Treatment, Prognosis SEPSIS Sepsis Screen Date sepsis recognized/suspect: Feb 11, 2025 Time Sepsis recognized/suspect: 2302 Recent Procedure: Yes On Antibiotic Therapy: Yes Respiratory Rate >20: No Heart Rate >90: Yes Temp<36 C (96.8 F) or >38.3 C: No SBP <90 or MAP <65 mmHG: No New Acute Mental Status Change: No Is the patient on CPAP, BIPAP,: No Physician Orders Comprehensive Metabolic Panel (02/11/25 23:08) Blood Culture (02/11/25 23:08) Wound Culture W/ Gs (02/11/25 23:08) C-Reactive Protein (02/11/25 23:08) Vancomycin Per Pharmacy (02/11/25 23:15) Cleanse Wound W/ Sterile Gauze (02/11/25 23:23) Cleanse Wound With Ns (02/11/25 23:23) Vancomycin 1gm/250ml Kit (02/11/25 23:45) Left Lower Extremity W/O Con (02/11/25 23:58) Mrsa Screen (02/12/25 00:18) Vital Signs Date Time Temp Pulse Resp B/P (MAP) Pulse Ox O2 Delivery O2 Flow Rate FiO2 02/11/25 23:00 97.7 102 18 114/78 93 97.7 Laboratory Tests Test 02/11/25 23:38 Lactic Acid Level 1.9 mmol/L (0.4-2.0) White Blood Count 10.6 10^3/uL (4.4-10.8) Departure 1 Departure Time of Disposition: 02:00 Impression: Primary Impression: Chronic osteomyelitis of left foot Additional Impression: Cellulitis Disposition: 30 STILL A PATIENT Condition: Fair Additional Instructions: Patient will be admitted to this facility for further management of left lower extremity cellulitis/osteomyelitis and podiatry consultation. She will need antibiotics preferably IV, awaiting blood cultures at this time. Critical Care Note Critical Care Time?: No Stability Stability form required: No RICKIE HUNTLEY RESIDENT Feb 11, 2025 23:25
[2025-02-11] MEDS: MORPHINE SULFATE INJ 2 MG/ml SYRG IV ONE (23:30)
[2025-02-12 00:20] LABS: Hematocrit 38.9 % (36.0-46.0); Hemoglobin 13.1 g/dL (12.2-16.2); Mean Corpuscular Hemoglobin 29.0 pg (28.0-32.0); Mean Corpuscular Volume 86.0 fL (80.0-100.0); Nucleated Red Blood Cells % 0.0 %
[2025-02-12 00:34] LABS: Alanine Aminotransferase 22 U/L (7-40); Albumin 4.2 g/dL (3.2-4.8); Anion Gap 12 (5-15); BUN/Creatinine Ratio 15.4 (10.0-20.0); Blood Urea Nitrogen 16 mg/dL (9-23); Calcium 8.9 mg/dL (8.7-10.4); Carbon Dioxide 26 mmol/L (20-31); Chloride 101 mmol/L (98-107); Potassium 3.9 mmol/L (3.5-5.1); Sodium 139 mmol/L (136-145); Total Protein 6.8 g/dL (5.7-8.2)
[2025-02-12 00:40] LABS: Alkaline Phosphatase 190 U/L (46-116); Bilirubin, Total 1.4 mg/dL (0.2-1.0); Glucose 109 mg/dL (74-106)
--- NOTE | 2025-02-12 01:55 | DVH ---
CLINICAL HISTORY: left foot draining wound, cellulitis, hx of i D TECHNIQUE: CT of the left lower extremity was performed without intravenous contrast. This exam was p erformed according to our departmental dose optimization program. Up-to-date CT equipment and radiati on dose reduction techniques are utilized as appropriate. CTDI: 7.75 mGy DLP: 245.21 mGy.cm COMPARISON: US LT LOW EXT ART DUPLEX on DOS: 07/09/23, MRI MRI L FOOT WO CONTRAST on DOS: 07/04/23, CT CT L FOOT WO CONTRAST on DOS: 04/24/23, MRI MRI L FOOT WO CONTRAST on DOS: 03/29/23, CT LT LOWER EXTR EMITY W CONTRAS on DOS: 03/28/23 FINDINGS: There is an age-indeterminate mildly displaced fracture about the proximal 1st metatarsal. There is d iffuse subcutaneous swelling and stranding,. There is a fluid collection along the plantar aspect of the 1st metatarsal head. There is no definite underlying erosion. The joint spaces are maintained. IMPRESSION: 1. Age-indeterminate mildly displaced fracture of the proximal 1st metatarsal. 2. Fluid collection along the plantar aspect of the metatarsal head, sterility indeterminate. Diffuse subcutaneous swelling and stranding suggesting infectious/ inflammatory process in the appropriate c linical setting. If there is clinical concern for osteomyelitis, MRI would be more sensitive in furth er evaluation.
[2025-02-12] MEDS: MORPHINE SULFATE 4 MG/ML SYR/VIAL IV ONE (02:00)
[2025-02-12] MEDS: BACITRACIN TOP OINT 1 UD PKG TOP ONE (02:15)
[2025-02-12 02:35] VITALS: PULSE 95; RESP 15; O2SAT 91
--- NOTE | 2025-02-12 02:40 | DVH ---
CLINICAL INDICATION: hx of fall, pain TECHNIQUE: XY SACRUM AND COCCYX Comparison: None FINDINGS/IMPRESSION: : There is no evidence of acute fracture or dislocation. Soft tissues are unremarkable.
[2025-02-12] MEDS: PIPERACILLIN-TAZOB 3.375GM 100 ML IV SCH (03:15)
[2025-02-12] MEDS: PANTOPRAZOLE 40 MG/10 ML VIAL INJ IV SCH (03:15)
[2025-02-12] MEDS ORDERED: DEXTROSE (50%) 50ML SYRG IV PRN (03:15)
--- NOTE | 2025-02-12 03:45 | DVHHPRES ---
History of Present Illness Resident Creating Document: FRANKIE MUNROE RESIDENT History of Present Illness Ms. Wells Is a 59-year-old female with prior medical history of type 2 diabetes mellitus, diabetic foot ulcers, myocardial infarction status post 2 SANDRA (2011 and 2012), CHF, herniated cervical disc status post neck fusion, hypertension, COPD, and GERD, who presents today to the emergency department chief complaint of left foot swelling and foot pain. The patient refers approximately 2 days of generalized malaise, and today began to notice redness and swelling around the area of the 1st metatarsal of the left foot. This was accompanied by pain described as sharp, 10/10 intensity, aggravated by weight bearing and walking, associated with febrile sensation and purulent discharge from incision on medial surface of the left foot. Additionally, the patient states she fell backwards a step on Saturday and landed on her coccyx, and has since had severe pain. She denies chest pain, nausea, vomiting, palpitations, head trauma, new lesions, and other symptoms. On 02/03/2025 the patient underwent a left foot 1st metatarsal osteotomy and left foot EHL tenotomy. Due to worsened swelling and pain, the patient is sought medical attention in the emergency department. On evaluation in the ED, patient was afebrile and tachycardic. Initial labs show CBC within normal range, creatinine 1.04, total bilirubin 1.4, and ALP 190. Left lower extremity CT shows age-indeterminate mildly displaced fracture of the proximal 1st metatarsal, fluid collection along the plantar aspect of the metatarsal head, diffuse subcutaneous swelling and stranding suggesting infectious / inflammatory process. Sacrum and coccyx x-ray shows no evidence of acute fracture or dislocation, soft tissues are unremarkable. The patient was started on IV pain medication and IV antibiotics. She was admitted for further workup and monitoring. Cardiovascular: CAD, CHF, HTN, [place] Pulmonary: COPD SANITATION ASSOCIATE: Periperal neuropathy GI: GERD Endocrine: Diabetes Past Surgical History: Appendectomy, Hysterectomy, Other (I&D, 1st metatarsal osteotomy, left foot EHL tenotomy, cervical spine fusion) Family History: None Smoke: 1 pack per day (One pack a day for approximately 25 years, quit 20 years ago) ALCOHOL: none Drugs: None Lives: with Family Domestic Violence: Neg Review of Systems Review of Systems Constitutional: Refers febrile sensation and general malaise, Denies weight loss and chills. HEENT: Denies changes in vision and hearing. Respiratory: Denies shortness of breath and cough Cardiovascular: Denies chest discomfort or palpitations GI: Denies abdominal distention, abdominal pain, diarrhea : Denies dysuria and urinary frequency. Musculoskeletal: Refers pain in left foot, refers drainage of left foot wound, refers pain in sacral area Skin: Denies rash and pruritus. Neurological: denies dizziness headache vision or hearing problems Allergies: Coded Allergies: Gabapentin (Verified Allergy, Severe, 07/04/23) Hydrochlorothiazide (Verified Allergy, Severe, 07/05/23) Medications Current Medications Medications Dose Ordered Sig/Garfield Route Start Time Stop Time Status Last Admin Dose Admin Vancomycin HCl 0 ml @ 0 mls/hr UD IV 02/11/25 23:15 UNV Enoxaparin Sodium 40 mg DAILY SC 02/12/25 10:00 UNV Morphine Sulfate 2 mg Q4HPRN PRN IV 02/12/25 03:15 UNV Diagnostic Test (Pha) 1 strip Q6HR 02/12/25 06:00 UNV Insulin Human Regular Q6HR SC 02/12/25 06:00 UNV Dextrose 50 ml UD PRN IV 02/12/25 03:15 UNV Piperacillin Sod/ Tazobactam Sod 100 ml @ 25 mls/hr Q8HR IV 02/12/25 03:15 UNV Sodium Chloride 1,000 ml @ 100 mls/hr Q10H IV 02/12/25 03:15 UNV Pantoprazole Sodium 40 mg DAILY IV 02/12/25 03:15 UNV Atorvastatin Calcium 20 mg DAILY PO 02/12/25 10:00 UNV Furosemide 40 mg DAILY PO 02/12/25 10:00 UNV Patient Own Medication 1 cap TID PO 02/12/25 06:00 UNV Exam Vital Signs Vital Signs Date Time Temp Pulse Resp B/P (MAP) Pulse Ox O2 Delivery O2 Flow Rate FiO2 02/12/25 02:00 95 16 111/60 02/11/25 23:00 97.7 93 97.7 Exam General: The patient alert and oriented in person place and time. Patient following commands HEENT: Normocephalic, atraumatic, normal reactive pupils, EOM intact, pink conjunctiva, pink dry mucous membrane Respiratory/pulmonary: Bilateral chest expansion, no pain on palpation of chest wall, clear lungs bilaterally, vesicular murmurs present in almost all lung ngo, no associated crackles or wheezes. Cardiovascular: Normal RRR, normal S1 and S2, no murmurs Abdomen: Obese, Abdomen nondistended, normal bowel sounds, soft, there is no pain to palpation in any of the abdominal quadrants, no palpable masses. Extremities: Presence of swelling and redness involving the plantar surface of the 1st metatarsal of the left foot also affecting lateral region, warm to the touch, presence of diabetic foot ulcer plantar surface of left foot near the 1st metatarsal without presence of drainage or discharge, presence of small incision on lateral surface of the L foot near the 1st metatarsal, approximated with suture intact, with surrounding erythema and purulent discharge. Painful to palpation. Pulses are present. Skin: As described above. Neurological: Intact cranial nerves with no focal neurologic deficits Labs/Xrays Labs Test 02/11/25 23:38 Range/Units White Blood Count 10.6 4.4-10.8 10^3/uL Red Blood Count 4.53 4.0-5.20 10^6/uL Hemoglobin 13.1 12.2-16.2 g/dL Hematocrit 38.9 36.0-46.0 % Mean Corpuscular Volume 86.0 80.0-100.0 fL Mean Corpuscular Hemoglobin 29.0 28.0-32.0 pg Mean Corpuscular Hemoglobin Concent 33.8 32.0-36.0 g/dL Red Cell Distribution Width 14.8 H 11.8-14.3 % Platelet Count 272 140-450 10^3/uL Mean Platelet Volume 8.1 6.9-10.8 fL Neutrophils (%) (Auto) 67.3 37.0-80.0 % Lymphocytes (%) (Auto) 24.5 10.0-50.0 % Monocytes (%) (Auto) 6.2 0.0-12.0 % Eosinophils (%) (Auto) 1.6 0.0-7.0 % Basophils (%) (Auto) 0.4 0.0-2.0 % Neutrophils # (Auto) 7.1 1.6-8.6 10 ^3/uL Lymphocytes # (Auto) 2.6 0.4-5.4 10 ^3/uL Monocytes # (Auto) 0.7 0-1.3 10 ^3/uL Eosinophils # (Auto) 0.2 0-0.8 10 ^3/uL Basophils # (Auto) 0 0-0.2 10 ^3/uL Nucleated Red Blood Cells 0.0 % Sodium Level 139 136-145 mmol/L Potassium Level 3.9 3.5-5.1 mmol/L Chloride Level 101 98-107 mmol/L Carbon Dioxide Level 26 20-31 mmol/L Anion Gap 12 5-15 Blood Urea Nitrogen 16 9-23 mg/dL Creatinine 1.04 H 0.550-1.02 mg/dL Glomerular Filtration Rate Calc 63 >90 mL/min BUN/Creatinine Ratio 15.4 10.0-20.0 Serum Glucose 109 H 74-106 mg/dL Lactic Acid Level 1.9 0.4-2.0 mmol/L Calcium Level 8.9 8.7-10.4 mg/dL Total Bilirubin 1.4 H 0.2-1.0 mg/dL Aspartate Amino Transferase (AST) 20 13-40 U/L Alanine Aminotransferase (ALT) 22 7-40 U/L Alkaline Phosphatase 190 H 46-116 U/L Total Protein 6.8 5.7-8.2 g/dL Albumin 4.2 3.2-4.8 g/dL SEPSIS Sepsis Screen Date sepsis recognized/suspect: Feb 11, 2025 Time Sepsis recognized/suspect: 2302 Recent Procedure: Yes On Antibiotic Therapy: Yes Respiratory Rate >20: No Heart Rate >90: Yes Temp<36 C (96.8 F) or >38.3 C: No SBP <90 or MAP <65 mmHG: No New Acute Mental Status Change: No Is the patient on CPAP, BIPAP,: No Physician Orders Comprehensive Metabolic Panel (02/11/25 23:08) Blood Culture (02/11/25 23:08) Wound Culture W/ Gs (02/11/25 23:08) C-Reactive Protein (02/11/25 23:08) Vancomycin Per Pharmacy (02/11/25 23:15) Cleanse Wound W/ Sterile Gauze (02/11/25 23:23) Cleanse Wound With Ns (02/11/25 23:23) Left Lower Extremity W/O Con (02/11/25 23:58) Mrsa Screen (02/12/25 00:18) Sacrum And Coccyx (02/12/25 01:41) Weight-Bearing Restrictions (02/12/25 02:22) Admit (02/12/25 03:14) Allergies (02/12/25 03:14) Code Status (02/12/25 03:14) Enoxaparin Sodium (Lovenox) (02/12/25 10:00) Npo (Nothing By Mouth) Diet (02/12/25 Breakfast) Condition: Stable (02/12/25 03:14) Morphine Sulfate Injection (02/12/25 03:15) Stat Ekg For Chest Pain (02/12/25 03:14) Notify Md Of Changes From Base (02/12/25 03:14) Emergency Dysrhythmia Protocol (02/12/25 03:14) Rhythm Strips Once Every Shift (02/12/25 03:14) Basic Metabolic Panel (02/12/25 04:00) Complete Blood Count (02/12/25 04:00) PTPTT (02/12/25 04:00) Hemoglobin A1c (02/12/25 03:14) Thyroid Stimulating Hormone (02/12/25 04:00) Phosphorus (02/12/25 04:00) Magnesium (02/12/25 04:00) Vitamin D, 25-Hydroxy (02/12/25 04:00) Vitamin B12 (02/12/25 04:00) Glucose Blood (Accu-Chek Comfort Curve T (02/12/25 06:00) Insulin R (Human) (Insulin R) (02/12/25 06:00) Dextrose 50% Syringe (02/12/25 03:15) Piperacillin-Tazob 3.375gm (Zosyn 3.375g (02/12/25 03:15) Sodium Chloride 0.9% (02/12/25 03:15) Pantoprazole (Protonix) (02/12/25 03:15) Atorvastatin (Lipitor) (02/12/25 10:00) Furosemide Tablet (Lasix Tablet) (02/12/25 10:00) (Nf) Pregabalin (02/12/25 06:00) Bilat Low Ext Art Duplex (02/12/25 03:27) Electrocardigram (02/12/25 03:27) * Wound Consult (02/12/25 03:37) *Podiatry Consult [facility]on([facility]) (02/12/25 03:37) Vital Signs Date Time Temp Pulse Resp B/P (MAP) Pulse Ox O2 Delivery O2 Flow Rate FiO2 02/12/25 02:00 95 16 111/60 02/11/25 23:00 97.7 102 18 114/78 93 97.7 Laboratory Tests Test 02/11/25 23:38 Lactic Acid Level 1.9 mmol/L (0.4-2.0) White Blood Count 10.6 10^3/uL (4.4-10.8) Medications Medications Dose Ordered Sig/Garfield Route Start Time Stop Time Status Last Admin Dose Admin Bacitracin 3 applic ONCE ONCE TOP 02/12/25 00:30 02/12/25 00:31 DC 02/12/25 02:15 3 APPLIC Cefepime HCl 50 ml @ 50 mls/hr ONCE ONCE IV 02/11/25 23:15 02/12/25 00:14 DC 02/11/25 02:15 50 MLS/HR Morphine Sulfate 1 mg ONCE ONCE IV 02/12/25 02:00 02/12/25 02:01 DC 02/12/25 02:00 1 MG Sodium Chloride 1,000 ml @ 1,000 mls/hr Q1H ONCE IV 02/11/25 23:15 02/12/25 00:14 DC 02/11/25 01:15 1,000 MLS/HR Vancomycin HCl 250 ml @ 166.667 mls/hr Q2H IV 02/11/25 23:45 02/12/25 03:14 DC 02/11/25 02:30 166.667 MLS/HR Assessment/Plan Assessment/Plan Assessment and Plan: Cellulitis of left foot Possible Osteomyelitis of L foot - Left lower extremity CT: fluid collection along the plantar aspect of the metatarsal head, sterility indeterminate. Diffuse subcutaneous swelling and stranding suggesting infectious/ inflammatory process. - NS 1000 cc bolus once - NS maintenance 100 cc/hour - Cefepime IV once - Vancomycin per pharmacy protocol - Zosyn 3.375 mg IV q.8 hours - Morphine sulfate 1 mg IV once x2 - Morphine sulfate 2 mg IV q.4 hours PRN - Consult with Wound Care has been ordered - Consult with Podiatry has been ordered - Patient has been placed on NPO pending evaluation by Podiatry - Wound cultures have been ordered - Blood cultures have been ordered Displaced fracture of proximal 1st metatarsal - Left lower extremity CT: Age indeterminate mildly displaced fracture of the proximal 1st metatarsal R/O PAD - Bilateral lower extremity arterial duplex ultrasound has been ordered YARELI on 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 daily - Aspirin 81 mg p.o. daily will be held due to possible surgical intervention Hypertension - Monitor BP Diabetic peripheral neuropathy - Evaluate initiating gabapentin GERD - Protonix 40 mg IV daily Morbid obesity, BMI 38.1 kg/m2 - I have counseled the patient on the importance of healthy lifestyle modifications Diet: NPO DVT prophylaxis: Enoxaparin 40 mg SC daily GI prophylaxis: Protonix 40 mg IV daily Case discussed with Dr. Dobbins Goals of care discussed with the patient and her daughter, Isabel, at bedside for over 30 minutes. Full code. Plan discussed with: Patient, Daughter, Other (Nurses) My Orders Orders - FRANKIE MUNROE RESIDENT Procedure Category Date Status Time Admit ADMIT 02/12/25 Transmitted 03:14 Allergies GUNNER 02/12/25 In Process 03:14 Code Status CODE 02/12/25 Transmitted 03:14 Enoxaparin Sodium PHA 02/12/25 Logged (Lovenox) 10:00 Npo (Nothing By DIET 02/12/25 Transmitted Mouth) Diet Breakfast Condition: Stable GUNNER 02/12/25 In Process 03:14 Morphine Sulfate PHA 02/12/25 Logged Injection 03:15 Stat Ekg For Chest GUNNER 02/12/25 In Process Pain 03:14 Notify Md Of Changes GUNNER 02/12/25 In Process From Base 03:14 Emergency Dysrhythmia GUNNER 02/12/25 In Process Protocol 03:14 Rhythm Strips Once GUNNER 02/12/25 In Process Every Shift 03:14 Basic Metabolic Panel LAB 02/12/25 Logged 04:00 Complete Blood Count LAB 02/12/25 Logged 04:00 PTPTT LAB 02/12/25 Logged 04:00 Hemoglobin A1c LAB 02/12/25 In Process 03:14 Thyroid Stimulating LAB 02/12/25 Logged Hormone 04:00 Phosphorus LAB 02/12/25 Logged 04:00 Magnesium LAB 02/12/25 Logged 04:00 Vitamin D, 25-Hydroxy LAB 02/12/25 In Process 04:00 Vitamin B12 LAB 02/12/25 In Process 04:00 Glucose Blood PHA 02/12/25 Logged (Accu-Chek Comfort 06:00 Insulin R (Human) PHA 02/12/25 Logged (Insulin R) 06:00 Dextrose 50% Syringe PHA 02/12/25 Logged 03:15 Piperacillin-Tazob PHA 02/12/25 Logged 3.375gm (Zosyn 3.375g 03:15 Sodium Chloride 0.9% PHA 02/12/25 Logged 03:15 Pantoprazole PHA 02/12/25 Logged (Protonix) 03:15 Atorvastatin (Lipitor) PHA 02/12/25 Logged 10:00 Furosemide Tablet PHA 02/12/25 Logged (Lasix Tablet) 10:00 (Nf) Pregabalin PHA 02/12/25 Logged 06:00 Bilat Low Ext Art US 02/12/25 Logged Duplex 03:27 Electrocardigram EKG 02/12/25 Logged 03:27 * Wound Consult CONS 02/12/25 Transmitted 03:37 *Podiatry Consult CONS 02/12/25 Transmitted [facility]on(D[facility]) 03:37 Date of Service: Feb 12, 2025 Billing Provider: JAKUB KAM MD Common Visit Codes: [id number] INP/OBS CARE (HIGH) Secondary Visit Codes: [id number] CARE PLAN 30 MINUTES FRANKIE MUNROE RESIDENT Feb 12, 2025 03:45 RUBÉN MAYES RESIDENT Feb 12, 2025 04:59
[2025-02-12] MEDS: VANCOMYCIN 1GM/250ML KIT 250 ML IV ONE (05:18)
[2025-02-12 05:39] LABS: Anion Gap 14 (5-15); Carbon Dioxide 24 mmol/L (20-31); Chloride 103 mmol/L (98-107); Potassium 3.8 mmol/L (3.5-5.1); Sodium 141 mmol/L (136-145)
[2025-02-12 05:45] LABS: BUN/Creatinine Ratio 16.5 (10.0-20.0); Blood Urea Nitrogen 16 mg/dL (9-23)
[2025-02-12 05:52] LABS: INR 0.98 (0.9-1.15); Partial Thromboplastin Time 24.8 SEC (24.5-34.5); Prothrombin Time 10.4 sec (9.3-11.8)
[2025-02-12] MEDS: InsuLIN REG 1unit/0.01ml Soln (100units/ml) SC SCH (06:00)
[2025-02-12 06:10] LABS: Calcium 8.5 mg/dL (8.7-10.4); Glucose 127 mg/dL (74-106); Magnesium 1.5 mg/dL (1.6-2.6)
[2025-02-12] MEDS: PREGABALIN 25 MG CAP PO SCH (06:27)
[2025-02-12] MEDS: ACCU-CHEK COMFORT CURVE STRIP VI SCH (06:27)
[2025-02-12 06:35] LABS: Hematocrit 36.7 % (36.0-46.0); Hemoglobin 12.4 g/dL (12.2-16.2); Mean Corpuscular Hemoglobin 28.9 pg (28.0-32.0); Mean Corpuscular Volume 85.3 fL (80.0-100.0); Nucleated Red Blood Cells % 0.2 %
[2025-02-12 07:20] VITALS: PULSE 90; RESP 20; O2SAT 98
[2025-02-12] MEDS: SODIUM CHLORIDE 0.9% 1,000 ML IV SCH (08:07)
[2025-02-12 08:09] LABS: Alanine Aminotransferase 20.0 U/L (7-40); Albumin 3.9 g/dL (3.2-4.8); Total Protein 6.3 g/dL (5.7-8.2)
[2025-02-12 08:11] LABS: Alkaline Phosphatase 177.0 U/L (46-116); Bilirubin, Direct 0.5 mg/dL (<0.3); Bilirubin, Total 1.4 mg/dL (0.2-1.0)
--- NOTE | 2025-02-12 08:22 | DVH ---
Bilateral Lower Extremity Arterial Duplex Clinical History: R/o PAD Comparison: US LT LOW EXT ART DUPLEX on DOS: 07/09/23 Technique: Duplex Doppler evaluation including color Doppler and spectral/pulsed waveform analysis of the lower extremity arteries was performed. Findings: RIGHT: Peak systolic velocities are as follows: STEP FINISHER 151 cm/s Deep femoral 102 cm/s SFA proximal 83 cm/s SFA mid-portion 116 cm/s SFA distal 96 cm/s Popliteal 85 cm/s Posterior tibial 72 cm/s Anterior tibial 65 cm/s Peroneal nv cm/s Dorsalis pedis 65 cm/s The waveforms are triphasic with diastolic flow. LEFT: Peak systolic velocities are as follows: STEP FINISHER 81 cm/s Deep femoral 89 cm/s SFA proximal 122 cm/s SFA mid-portion 146 cm/s SFA distal 98 cm/s Popliteal 128 cm/s Posterior tibial 81 cm/s Anterior tibial 79 cm/s Peroneal nv cm/s Dorsalis pedis 79 cm/s The waveforms are biphasic with diastolic flow. IMPRESSION: 20-49% stenosis of the right common femoral artery based on peak systolic velocity criteria. No hemodynamically significant stenosis in the left. REFERENCE VALUES, [facility] ([facility]) vascular Imaging Lab Criteria: Peak systolic velocity rang es (in cm/sec) are as follows: <150 cm/s - <20 % stenosis 150-200 cm/s - 20-49% stenosis 200-300 cm/s - 50-75% stenosis >300 cm/s -> 75% stenosis
[2025-02-12] MEDS: MAGNESIUM SULFATE 1GM/100ML 100 ML IV ONE (08:43)
[2025-02-12] MEDS: ERGOCALCIFEROL 50,000 UNIT(1.25MG) CAP PO SCH (08:58)
[2025-02-12] MEDS: ATORVASTATIN 20 MG TAB PO SCH (10:24)
[2025-02-12] MEDS: ENOXAPARIN SOD 40 MG/0.4 ML SYRINGE SC SCH (10:24)
[2025-02-12] MEDS: FUROSEMIDE 40 MG TAB PO SCH (10:24)
[2025-02-12] MEDS: MORPHINE SULFATE INJ 2 MG/ml SYRG IV PRN (11:08)
[2025-02-12] MEDS: MORPHINE SULFATE 4 MG/ML SYR/VIAL ONE (11:12)
[2025-02-12 11:21] LABS: Urine Protein, UAD Negative (Negative)
[2025-02-12 11:24] LABS: Amphetamine Screen, Urine Neg (NEGATIVE); Barbiturate Scree,Urine Neg (NEGATIVE); Benzodiazephine Screen, Urine Neg (NEGATIVE); Cannabinoid Screen, Urine Neg (NEGATIVE); Cocaine Screen, Urine Neg (NEGATIVE); Opiate Scree,Urine Pos (NEGATIVE); Phencyclidine Screen, Urine Neg (NEGATIVE)
--- NOTE | 2025-02-12 11:30 | DVHPNRES ---
Progress Note Date Seen: Feb 12, 2025 Resident Creating Document: ANNITA BARFIELD RESIDENT Medical Necessity Reason Pt with a Central, PICC or Fol: No Subjective Review of Systems Ms. Wells Is a 59-year-old female with prior medical history of type 2 diabetes mellitus, diabetic foot ulcers, myocardial infarction status post 2 SANDRA (2011 and 2012), CHF, herniated cervical disc status post neck fusion, hypertension, COPD, and GERD, who presents today to the emergency department chief complaint of left foot swelling and foot pain. The patient refers approximately 2 days of generalized malaise, and today began to notice redness and swelling around the area of the 1st metatarsal of the left foot. This was accompanied by pain described as sharp, 10/10 intensity, aggravated by weight bearing and walking, associated with febrile sensation and purulent discharge from incision on medial surface of the left foot. Additionally, the patient states she fell backwards a step on Saturday and landed on her coccyx, and has since had severe pain. She denies chest pain, nausea, vomiting, palpitations, head trauma, new lesions, and other symptoms. On 02/03/2025 the patient underwent a left foot 1st metatarsal osteotomy and left foot EHL tenotomy. Due to worsened swelling and pain, the patient is sought medical attention in the emergency department. On evaluation in the ED, patient was afebrile and tachycardic. Initial labs show CBC within normal range, creatinine 1.04, total bilirubin 1.4, and ALP 190. Left lower extremity CT shows age-indeterminate mildly displaced fracture of the proximal 1st metatarsal, fluid collection along the plantar aspect of the metatarsal head, diffuse subcutaneous swelling and stranding suggesting infectious / inflammatory process. Sacrum and coccyx x-ray shows no evidence of acute fracture or dislocation, soft tissues are unremarkable. The patient was started on IV pain medication and IV antibiotics. She was admitted for further workup and monitoring. Cardiovascular: CAD, CHF, HTN, [place] Pulmonary: COPD ELEMENTARY SPECIAL EDUCATION TEACHER: Periperal neuropathy GI: GERD Endocrine: Diabetes Past Surgical History: Appendectomy, Hysterectomy, Other (I&D, 1st metatarsal osteotomy, left foot EHL tenotomy, cervical spine fusion) Family History: None Smoke: 1 pack per day (One pack a day for approximately 25 years, quit 20 years ago) ALCOHOL: none Drugs: None Lives: with Family Domestic Violence: Neg Objective vital signs Vital Sign Date Time Temp Pulse Resp B/P (MAP) Pulse Ox O2 Delivery O2 Flow Rate FiO2 02/12/25 11:08 76 17 103/55 02/12/25 09:27 96 02/12/25 07:20 Nasal Cannula* 1 24 02/12/25 07:20 98.1 98.1 medications Current Medications Medications Dose Ordered Sig/Garfield Route Start Time Stop Time Status Last Admin Dose Admin Vancomycin HCl 0 ml @ 0 mls/hr UD IV 02/11/25 23:15 Enoxaparin Sodium 40 mg DAILY SC 02/12/25 10:00 02/12/25 10:24 40 MG Morphine Sulfate 2 mg Q4HPRN PRN IV 02/12/25 03:15 02/12/25 11:08 2 MG Diagnostic Test (Pha) 1 strip Q6HR 02/12/25 06:00 02/12/25 06:27 1 STRIP Insulin Human Regular Q6HR SC 02/12/25 06:00 Dextrose 50 ml UD PRN IV 02/12/25 03:15 Piperacillin Sod/ Tazobactam Sod 100 ml @ 25 mls/hr Q8H IV 02/12/25 03:15 02/12/25 10:59 25 MLS/HR Sodium Chloride 1,000 ml @ 100 mls/hr Q10H IV 02/12/25 03:15 02/12/25 08:07 100 MLS/HR Pantoprazole Sodium 40 mg DAILY IV 02/12/25 03:15 02/12/25 10:23 40 MG Atorvastatin Calcium 20 mg DAILY PO 02/12/25 10:00 02/12/25 10:24 20 MG Furosemide 40 mg DAILY PO 02/12/25 10:00 02/12/25 10:24 40 MG Pregabalin 200 mg TID PO 02/12/25 06:00 02/12/25 06:27 200 MG Ergocalciferol 50,000 unit Q7D PO 02/12/25 08:45 02/12/25 08:58 50,000 UNIT Examination General examination- HEENT- PEERLA, no acute nasal discharge Cardiovascular- S1-S2 audible, rate and rhythm regular, no murmur Respiratory- CTAB, no wheeze or rhonchi Gastrointestinal-nontender, bowel sound+. Nondistended Musculoskeletal-no acute joint swelling or tenderness or redness Lower extremity- Neurological- cranial nerves intact, no acute dysarthria or dysphagia Psychiatry- denies depression or SI or HI Skin- no acute rash or purpura laboratory and microbiology Laboratory Tests 02/12/25 05:13 Test 02/12/25 05:13 Range/Units Serum Glucose 127 H 74-106 mg/dL Problem List/Assessment/Plan Problem List/Assessment/Plan Assessement and P[paul -spoke to Podiatry Dr. Torrez, mentioned oral antibiotic for 2 weeks, no intervention at this moment. We will continue Zosyn and vancomycin at this moment. Possible DC tomorrow #Cellulitis of left foot #Possible Osteomyelitis of L foot - On 02/03/2025 the patient underwent a left foot 1st metatarsal osteotomy and left foot EHL tenotomy - Left lower extremity CT: fluid collection along the plantar aspect of the metatarsal head, sterility indeterminate. Diffuse subcutaneous swelling and stranding suggesting infectious/ inflammatory process. 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 daily - Aspirin 81 mg p.o. daily will be held due to possible surgical intervention #Hypertension - Monitor BP #Diabetic peripheral neuropathy - resumed home medication gabapentin #GERD - Protonix 40 mg po daily #Morbid obesity, BMI 38.1 kg/m2 - I have counseled the patient on the importance of healthy lifestyle modifications Goals of care, Code status full code ; discussed with >15 minutes PUD prophylaxis: pantoprazole DVT prophylaxis: lovenox Plan discussed with Dr. Suarez , nursing staff, Total time spent on patient evaluation, chart review, assessment and plan, discussion discussion >35 minutes Plan discussed with: Patient, Other (RN) My Orders My Orders Orders - ANNITA BARFIELD Procedure Category Date Status Time Ergocalciferol PHA 02/12/25 In Process (Vitamin D 50,000 08:45 Garduno Catheters ED NURSING 02/12/25 Transmitted Date of Service: Feb 12, 2025 Billing Provider: TERESITA SUAREZ MD Common Visit Codes: [id number] INP/OBS CARE(HIGH) ANNITA BARFIELD RESIDENT Feb 12, 2025 11:30 TERESITA SUAREZ MD Feb 12, 2025 20:04
--- NOTE | 2025-02-12 12:06 | DVH ---
CHEST RADIOGRAPH Indication: osteomyelitis Technique: Single frontal view of the chest was obtained Comparison: XY CHEST TWO VIEWS ROUTINE on DOS: 01/29/25, XR CHEST 2 VIEW on DOS: 09/14/24, XY CHEST PORT ABLE on DOS: 07/10/23, XY CHEST PORTABLE on DOS: 04/24/23, XY CHEST TWO VIEWS ROUTINE on DOS: 07/27/22 FINDINGS: Lines and Tubes: Right PICC removed. Lungs: No focal consolidation. Pleura: No effusion. No pneumothorax. Cardiomediastinal contours: Unremarkable Bones: No acute osseous abnormality. IMPRESSION: No acute cardiopulmonary disease.
[2025-02-12 14:44] VITALS: BP 124/72; PULSE 75; RESP 18; TEMP 98.3; O2SAT 98
[2025-02-12 17:00] VITALS: BP 116/72; PULSE 81; RESP 20; TEMP 97.8; O2SAT 92
[2025-02-12] MEDS: HYDROmorphone HCL 2 MG/ML VL/or syr IV PRN (17:58)
[2025-02-12 20:00] VITALS: PULSE 98; RESP 18; O2SAT 97
[2025-02-12 21:00] VITALS: BP 114/60; PULSE 102; RESP 18; TEMP 98.5; O2SAT 96
[2025-02-13] VITALS (7 sets, daily range): BP systolic 107–123; BP diastolic 55–90; PULSE 56–104; RESP 15–19; TEMP 97.4–98.8; O2SAT 95–99
[2025-02-13] MEDS: PANTOPRAZOLE 40 MG TAB PO SCH (05:13)
[2025-02-13 07:05] LABS: Hematocrit 38.5 % (36.0-46.0); Hemoglobin 12.9 g/dL (12.2-16.2); Mean Corpuscular Hemoglobin 29.7 pg (28.0-32.0); Mean Corpuscular Volume 89.0 fL (80.0-100.0); Nucleated Red Blood Cells % 0.1 %
[2025-02-13 07:33] LABS: Alanine Aminotransferase 19 U/L (7-40); Albumin 3.9 g/dL (3.2-4.8); Anion Gap 13 (5-15); BUN/Creatinine Ratio 10.3 (10.0-20.0); Blood Urea Nitrogen 10 mg/dL (9-23); Carbon Dioxide 25 mmol/L (20-31); Chloride 102 mmol/L (98-107); Magnesium 1.9 mg/dL (1.6-2.6); Sodium 140 mmol/L (136-145); Total Protein 6.5 g/dL (5.7-8.2)
[2025-02-13 07:46] LABS: Alkaline Phosphatase 182 U/L (46-116); Bilirubin, Total 2.2 mg/dL (0.2-1.0); Calcium 8.5 mg/dL (8.7-10.4); Glucose 135 mg/dL (74-106); Potassium 3.4 mmol/L (3.5-5.1)
[2025-02-13] MEDS: POTASSIUM EFFERVESENT TAB 25 MEQ PO ONE (11:40)
--- NOTE | 2025-02-13 11:48 | DVHPN2 ---
Reviewed: Care Plan, H&P, Labs, Medications, Previous Orders, Radiology Changes from previous H/P or p: No Changes Objective Vitals Vital Signs Date Time Temp Pulse Resp B/P (MAP) Pulse Ox O2 Delivery O2 Flow Rate FiO2 02/13/25 09:29 123/77 02/13/25 09:00 98.8 94 17 95 98.8 02/13/25 07:45 Room Air* 0 21 Intake/Output Intake and Output 02/13/25 07:00 Intake Total 2100 ml Output Total 3650 ml Balance -1550 ml Intake Oral 1050 ml IV Total 1050 ml Output Urine Total 3650 ml Medications Current Medications Medications Dose Ordered Sig/[place] Route Start Time Stop Time Status Last Admin Dose Admin Vancomycin HCl 0 ml @ 0 mls/hr UD IV 02/11/25 23:15 Enoxaparin Sodium 40 mg DAILY SC 02/12/25 10:00 02/13/25 09:29 40 MG Diagnostic Test (Pha) 1 strip Q6HR 02/12/25 06:00 02/13/25 05:20 1 STRIP Insulin Human Regular Q6HR SC 02/12/25 06:00 02/13/25 05:20 2 UNITS Dextrose 50 ml UD PRN IV 02/12/25 03:15 Piperacillin Sod/ Tazobactam Sod 100 ml @ 25 mls/hr Q8H IV 02/12/25 03:15 02/13/25 02:47 25 MLS/HR Atorvastatin Calcium 20 mg DAILY PO 02/12/25 10:00 02/13/25 09:28 20 MG Furosemide 40 mg DAILY PO 02/12/25 10:00 02/13/25 09:29 40 MG Pregabalin 200 mg TID PO 02/12/25 06:00 02/13/25 05:14 200 MG Ergocalciferol 50,000 unit Q7D PO 02/12/25 08:45 02/12/25 08:58 50,000 UNIT Pantoprazole Sodium 40 mg DAILY@0600 PO 02/13/25 06:00 02/13/25 05:13 40 MG Acetaminophen/ Hydrocodone Bitart 1 tab Q8HPRN PRN PO 02/13/25 11:00 Laboratory Results Laboratory Tests 02/13/25 06:03 Chemistry Test 02/13/25 06:03 Albumin 3.9 g/dL (3.2-4.8) Calcium Level 8.5 mg/dL (8.7-10.4) L Magnesium Level 1.9 mg/dL (1.6-2.6) Total Protein 6.5 g/dL (5.7-8.2) LFT Test 02/13/25 06:03 Alanine Aminotransferase (ALT) 19 U/L (7-40) Alkaline Phosphatase 182 U/L (46-116) H Aspartate Amino Transferase (AST) 20 U/L (13-40) Total Bilirubin 2.2 mg/dL (0.2-1.0) H Urinalysis Test 02/12/25 10:46 Urine Color Light-yellow (Yellow) Urine Clarity Clear (Clear) Urine pH 5.5 (5.0-9.0) Urine Specific [place] 1.008 (1.001-1.035) Urine Protein Negative (Negative) Urine Ketones Negative (Negative) Urine Blood Negative /uL (Negative) Urine Nitrite Negative (Negative) Urine Bilirubin Negative (Negative) Urine Urobilinogen Normal mg/dL (Negative) Urine Leukocyte Esterase Negative /uL (Negative) Urine RBC None seen /hpf (0 - 4) Urine Microscopic WBC < 1 /HPF (0-5) Urine Squamous Epithelial Cells None seen /hpf (<5) Urine Bacteria None seen /hpf (None Seen) Urine Glucose Normal mg/dL (Normal) Microbiology Microbiology Date/Time Source Procedure Growth Status 02/11/25 23:30 Blood Blood Culture - Preliminary NO GROWTH AFTER 24 HOURS OF INCUBATION. Resulted Labs and/or images reviewed: Labs reviewed by me, Image(s) reviewed by me Assessment/Plan Assessment/Plan Covering for resident physician Cellulitis left foot Osteomyelitis left foot: Continue Zosyn and vancomycin Displayed fracture proximal 1st metatarsal AK on CKD Congestive heart failure exacerbation History of IA status post stents Hypercholesterolemia Hypertension Diabetic neuropathy GERD Morbid obesity History of left foot surgery by Dr. Reynolds one week back Time spent 70 minutes Advanced care planning time 20 minutes Patient is full code Plan discussed with: Patient Date of Service: Feb 13, 2025 Billing Provider: RANJANA LEIGH MD Common Visit Codes: [id number] CARE 30-74 MIN RANJANA LEIGH MD Feb 13, 2025 11:48
[2025-02-13] MEDS: HYDROcodone-ACET 5/325MG TAB PO PRN (14:03)
[2025-02-13] MEDS: VANCOMYCIN 1GM/250ML KIT 250 ML IV SCH (17:06)
[2025-02-14 01:00] VITALS: BP 105/68; PULSE 93; RESP 18; TEMP 98.1; O2SAT 95
[2025-02-14 04:57] VITALS: BP 109/63; PULSE 82; RESP 18; TEMP 97.8; O2SAT 90
[2025-02-14 06:57] LABS: Hematocrit 36.9 % (36.0-46.0); Hemoglobin 12.6 g/dL (12.2-16.2); Mean Corpuscular Hemoglobin 29.4 pg (28.0-32.0); Mean Corpuscular Volume 85.8 fL (80.0-100.0); Nucleated Red Blood Cells % 0.1 %
[2025-02-14 08:00] VITALS: PULSE 76; RESP 16
--- NOTE | 2025-02-14 08:53 | DVHDSRES ---
Discharge Summary Date of Admission Resident Creating Document: ANNITA BARFIELD RESIDENT Feb 12, 2025 at 03:14 Date of Discharge: Feb 14, 2025 Admitting Diagnosis Left foot cellulitis, left foot wound infection Labs/Diagnostic Data: Laboratory Results Test 02/14/25 05:59 02/14/25 04:36 02/13/25 06:03 02/12/25 10:46 White Blood Count 6.6 10^3/uL (4.4-10.8) Red Blood Count 4.30 10^6/uL (4.0-5.20) Hemoglobin 12.6 g/dL (12.2-16.2) Hematocrit 36.9 % (36.0-46.0) Mean Corpuscular Volume 85.8 fL (80.0-100.0) Mean Corpuscular Hemoglobin 29.4 pg (28.0-32.0) Mean Corpuscular Hemoglobin Concent 34.3 g/dL (32.0-36.0) Red Cell Distribution Width 14.8 % (11.8-14.3) Platelet Count 226 10^3/uL (140-450) Mean Platelet Volume 8.4 fL (6.9-10.8) Neutrophils (%) (Auto) 52.0 % (37.0-80.0) Lymphocytes (%) (Auto) 36.0 % (10.0-50.0) Monocytes (%) (Auto) 6.9 % (0.0-12.0) Eosinophils (%) (Auto) 4.3 % (0.0-7.0) Basophils (%) (Auto) 0.8 % (0.0-2.0) Neutrophils # (Auto) 3.4 10 ^3/uL (1.6-8.6) Lymphocytes # (Auto) 2.4 10 ^3/uL (0.4-5.4) Monocytes # (Auto) 0.5 10 ^3/uL (0-1.3) Eosinophils # (Auto) 0.3 10 ^3/uL (0-0.8) Basophils # (Auto) 0.1 10 ^3/uL (0-0.2) Nucleated Red Blood Cells 0.1 % Creatinine 0.84 mg/dL (0.550-1.02) Glomerular Filtration Rate Calc 81 mL/min (>90) POC Glucose 144 mg/dl (70-106) Sodium Level 140 mmol/L (136-145) Potassium Level 3.4 mmol/L (3.5-5.1) Chloride Level 102 mmol/L (98-107) Carbon Dioxide Level 25 mmol/L (20-31) Anion Gap 13 (5-15) Blood Urea Nitrogen 10 mg/dL (9-23) BUN/Creatinine Ratio 10.3 (10.0-20.0) Serum Glucose 135 mg/dL (74-106) Calcium Level 8.5 mg/dL (8.7-10.4) Magnesium Level 1.9 mg/dL (1.6-2.6) Total Bilirubin 2.2 mg/dL (0.2-1.0) Aspartate Amino Transferase (AST) 20 U/L (13-40) Alanine Aminotransferase (ALT) 19 U/L (7-40) Alkaline Phosphatase 182 U/L (46-116) Total Protein 6.5 g/dL (5.7-8.2) Albumin 3.9 g/dL (3.2-4.8) Random Vancomycin Level 6.9 ug/mL (5-10) Urine Color Light-yellow (Yellow) Urine Clarity Clear (Clear) Urine pH 5.5 (5.0-9.0) Urine Specific [place] 1.008 (1.001-1.035) Urine Protein Negative (Negative) Urine Ketones Negative (Negative) Urine Blood Negative /uL (Negative) Urine Nitrite Negative (Negative) Urine Bilirubin Negative (Negative) Urine Urobilinogen Normal mg/dL (Negative) Urine Leukocyte Esterase Negative /uL (Negative) Urine RBC None seen /hpf (0 - 4) Urine Microscopic WBC < 1 /HPF (0-5) Urine Squamous Epithelial Cells None seen /hpf (<5) Urine Bacteria None seen /hpf (None Seen) Urine Glucose Normal mg/dL (Normal) Urine Opiates Screen Pos (NEGATIVE) Urine Fentanyl Screen Neg (NEGATIVE) Urine Barbiturates Screen Neg (NEGATIVE) Urine Phencyclidine Screen Neg (NEGATIVE) Urine Amphetamines Screen Neg (NEGATIVE) Urine Benzodiazepines Screen Neg (NEGATIVE) Urine Cocaine Screen Neg (NEGATIVE) Urine Cannabinoids Screen Neg (NEGATIVE) Test 02/12/25 05:13 02/11/25 23:38 Prothrombin Time 10.4 sec (9.3-11.8) Prothrombin Time INR 0.98 (0.9-1.15) Activated Partial Thromboplast Time 24.8 SEC (24.5-34.5) Phosphorus Level 3.5 mg/dL (2.4-5.1) Direct Bilirubin 0.5 mg/dL (<0.3) C-Reactive Protein High Sensitivity 3.70 mg/dL (<1.0) Thyroid Stimulating Hormone (TSH) 3.09 uIU/mL (0.55-4.78) Hemoglobin A1c 6.3 % A1C (<5.7) Lactic Acid Level 1.9 mmol/L (0.4-2.0) Vitamin B12 Level 379 pg/mL (211-911) Vitamin D 25-Hydroxy 23.9 ng/mL (30.0-100) Other Laboratory Tests 02/14/25 05:59 02/13/25 06:03 Brief Hx & Hospital Course: Ms. Kwon Is a 59-year-old female with prior medical history of type 2 diabetes mellitus, diabetic foot ulcers, myocardial infarction status post 2 SANDRA (2011 and 2012), CHF, herniated cervical disc status post neck fusion, hypertension, COPD, and GERD, who presents today to the emergency department chief complaint of left foot swelling and foot pain. The patient refers approximately 2 days of generalized malaise, and today began to notice redness and swelling around the area of the 1st metatarsal of the left foot. This was accompanied by pain described as sharp, 10/10 intensity, aggravated by weight bearing and walking, associated with febrile sensation and purulent discharge from incision on medial surface of the left foot. Additionally, the patient states she fell backwards a step on Saturday and landed on her coccyx, and has since had severe pain. She denies chest pain, nausea, vomiting, palpitations, head trauma, new lesions, and other symptoms. On 02/03/2025 the patient underwent a left foot 1st metatarsal osteotomy and left foot EHL tenotomy. Due to worsened swelling and pain, the patient is sought medical attention in the emergency department. On evaluation in the ED, patient was afebrile and tachycardic. Initial labs show CBC within normal range, creatinine 1.04, total bilirubin 1.4, and ALP 190. Left lower extremity CT shows age-indeterminate mildly displaced fracture of the proximal 1st metatarsal, fluid collection along the plantar aspect of the metatarsal head, diffuse subcutaneous swelling and stranding suggesting infectious / inflammatory process. Sacrum and coccyx x-ray shows no evidence of acute fracture or dislocation, soft tissues are unremarkable. Doppler study of the lower extremity arterial system revealed- 20-49% stenosis of the right common femoral artery based on peak systolic velocity criteria.No hemodynamically significant stenosis in the left. Patient was treated with IV antibiotic Zosyn and vancomycin. Patient's symptoms improved. Spoke to patient's burial agent Dr. Torrez, recommended for oral antibiotic for 2 weeks and follow up in his clinic in 1 week. Patient is being discharged with Augmentin. Patient's meds were sent to the pharmacy electronically. Patient was advised to follow up with her burial agent in 1 week and also to follow up at discharge clinic in 1 week and follow up with the primary care physician in 1-2 weeks. Patient's meds were sent to the pharmacy electronically. Patient was hemodynamically stable on discharge. Operations or Procedures [place] [id number] Ph: [phone] DIAGNOSTIC IMAGING Diagnostic Imaging Report : [id number] Signed PATIENT: WILLIE KWONACCT: [id number] UNIT: [id number] : 1965 LOC: ER ROOM / BED: / AGE / SEX: 59 / F ADM STATUS: REG ER SERVICE 1288 ORDERING PHYSICIAN: RICKIE HUNTLEY RESIDENT PROCEDURE(s): LLEX - LEFT LOWER EXTREMITY W/O CON REASON: left foot draining wound, cellulitis, hx of i &D ORDER NUMBER(s): [id number], ACCESSION NUMBER(s): [id number] CLINICAL HISTORY: left foot draining wound, cellulitis, hx of i D TECHNIQUE: CT of the left lower extremity was performed without intravenous contrast. This exam was performed according to our departmental dose optimization program. Up-to-date CT equipment and radiation dose reduction techniques are utilized as appropriate. CTDI: 7.75 mGy DLP: 245.21 mGy.cm COMPARISON: US LT LOW EXT ART DUPLEX on DOS: 07/09/23, MRI MRI L FOOT WO CONTRAST on DOS: 07/04/23, CT CT L FOOT WO CONTRAST on DOS: 04/24/23, MRI MRI L FOOT WO CONTRAST on DOS: 03/29/23, CT LT LOWER EXTREMITY W CONTRAS on DOS: 03/28/23 FINDINGS: There is an age-indeterminate mildly displaced fracture about the proximal 1st metatarsal. There is diffuse subcutaneous swelling and stranding,. There is a fluid collection along the plantar aspect of the 1st metatarsal head. There is no definite underlying erosion. The joint spaces are maintained. IMPRESSION: 1. Age-indeterminate mildly displaced fracture of the proximal 1st metatarsal. 2. Fluid collection along the plantar aspect of the metatarsal head, sterility indeterminate. Diffuse subcutaneous swelling and stranding suggesting infectious/ inflammatory process in the appropriate clinical setting. If there is clinical concern for osteomyelitis, MRI would be more sensitive in further evaluation. ATED BY: JAREN MCLEAN MD DICTATED DATE/TIME: 02/12/25151 SIGNED BY: JAREN MCLEAN MD SIGNED DATE/TIME: 02/12/25151 CC: [place] [id number] Ph: [phone] DIAGNOSTIC IMAGING Diagnostic Imaging Report : [id number] Signed PATIENT: WILLIE KWONACCT: [id number] UNIT: [id number] : 1965 LOC: ER ROOM / BED: / AGE / SEX: 59 / F ADM STATUS: REG ER SERVICE 0 ORDERING PHYSICIAN: RICKIE HUNTLEY RESIDENT PROCEDURE(s): SACCX - SACRUM AND COCCYX REASON: hx of fall, pain ORDER NUMBER(s): [id number], ACCESSION NUMBER(s): [id number] CLINICAL INDICATION: hx of fall, pain TECHNIQUE: XY SACRUM AND COCCYX Comparison: None FINDINGS/IMPRESSION: : There is no evidence of acute fracture or dislocation. Soft tissues are unremarkable. ATED BY: JOSE LUIS MONDRAGON MD DICTATED DATE/TIME: 02/12/25236 SIGNED BY: JOSE LUIS MONDRAGON MD SIGNED DATE/TIME: 02/12/25236 CC: [place] [id number] Ph: [phone] DIAGNOSTIC IMAGING Diagnostic Imaging Report : [id number] Signed PATIENT: WILLIE KWONACCT: [id number] UNIT: [id number] : 1965 LOC: OVERFLOW ROOM / BED: [address] [place] [address] / AGE / SEX: 59 / F ADM STATUS: ADM IN SERVICE 0327 ORDERING PHYSICIAN: FRANKIE MUNROE RESIDENT PROCEDURE(s): BLEAD - BiLat Low Ext Art Duplex REASON: R/o PAD ORDER NUMBER(s): [id number], ACCESSION NUMBER(s): [id number] Bilateral Lower Extremity Arterial Duplex Clinical History: R/o PAD Comparison: US LT LOW EXT ART DUPLEX on DOS: 07/09/23 Technique: Duplex Doppler evaluation including color Doppler and spectral/pulsed waveform analysis of the lower extremity arteries was performed. Findings: RIGHT: Peak systolic velocities are as follows: [employer]ATORY C[employer] INSTRUCTOR 151 cm/s Deep femoral 102 cm/s SFA proximal 83 cm/s SFA mid-portion 116 cm/s SFA distal 96 cm/s Popliteal 85 cm/s Posterior tibial 72 cm/s Anterior tibial 65 cm/s Peroneal nv cm/s Dorsalis pedis 65 cm/s The waveforms are triphasic with diastolic flow. LEFT: Peak systolic velocities are as follows: RESPIRATORY CARE INSTRUCTOR 81 cm/s Deep femoral 89 cm/s SFA proximal 122 cm/s SFA mid-portion 146 cm/s SFA distal 98 cm/s Popliteal 128 cm/s Posterior tibial 81 cm/s Anterior tibial 79 cm/s Peroneal nv cm/s Dorsalis pedis 79 cm/s The waveforms are biphasic with diastolic flow. IMPRESSION: 20-49% stenosis of the right common femoral artery based on peak systolic velocity criteria. No hemodynamically significant stenosis in the left. REFERENCE VALUES, [facility] ([facility]) vascular Imaging Lab Criteria: Peak systolic velocity ranges (in cm/sec) are as follows: <150 cm/s - <20 % stenosis 150-200 cm/s - 20-49% stenosis 200-300 cm/s - 50-75% stenosis >300 cm/s -> 75% stenosis ATED BY: ALEX RODRIGUEZ MD DICTATED DATE/TIME: 02/12/25818 SIGNED BY: ALEX RODRIGUEZ MD SIGNED DATE/TIME: 02/12/25818 CC: [place] [id number] Ph: [phone] DIAGNOSTIC IMAGING Diagnostic Imaging Report : [id number] Signed PATIENT: WILLIE KWONACCT: [id number] UNIT: [id number] : 1965 LOC: OVERFLOW ROOM / BED: [facility] / A AGE / SEX: 59 / F ADM STATUS: ADM IN SERVICE 1049 ORDERING PHYSICIAN: YANDEL DONOHUE RESIDENT PROCEDURE(s): CXR1 - CHEST XRAY 1 VIEW REASON: osteomyelitis ORDER NUMBER(s): [id number], ACCESSION NUMBER(s): [id number] CHEST RADIOGRAPH Indication: osteomyelitis Technique: Single frontal view of the chest was obtained Comparison: XY CHEST TWO VIEWS ROUTINE on DOS: 01/29/25, XR CHEST 2 VIEW on DOS: 09/14/24, XY CHEST PORTABLE on DOS: 07/10/23, XY CHEST PORTABLE on DOS: 04/24/23, XY CHEST TWO VIEWS ROUTINE on DOS: 07/27/22 FINDINGS: Lines and Tubes: Right PICC removed. Lungs: No focal consolidation. Pleura: No effusion. No pneumothorax. Cardiomediastinal contours: Unremarkable Bones: No acute osseous abnormality. IMPRESSION: No acute cardiopulmonary disease. ATED BY: FERN COPE MD DICTATED DATE/TIME: 02/12/251202 SIGNED BY: FERN COPE MD SIGNED DATE/TIME: 02/12/251202 CC: Condition at Discharge: Stable Final Diagnosis/Problems List #Cellulitis of left foot #Possible Osteomyelitis of L foot #Displaced fracture of proximal 1st metatarsal #S/P Mechanical fall #YARELI on CKD likely due to VMN/hemodynamically mediated #Type 2 Diabetes Mellitus with hyperglycemia #Chronic Heart Failure, not exacerbated #History of [place] s/p 2 SANDRA (2011 an 2012) #Hypertension #Diabetic peripheral neuropathy #GERD #Morbid obesity Discharge Disposition: Home Discharge Instruct/Medications Diet: Consistent carbohydrate, See Comment Activity: No Restrictions, As Tolerated Follow Up/Referral: Please follow up with the primary care physician in 1-2 weeks Please follow up with your burial agent Dr. Torrez in 1 week for further evaluation and care of your left foot Medications: Augmentin 875 mg p.o. b.i.d. for 12 days Resume other home medications Scheduled Albuterol Sulfate (Albuterol Sulfate Hfa), 2 PUFF PO Q6-8HR PRN, (Reported) Amoxicillin & Pot Clavulanate (Augmentin Tablet), 875 MG PO BID Atorvastatin Calcium (Atorvastatin Calcium), 1 TAB PO DAILY, (Reported) Diclofenac Sodium (Actinic Ker (Diclofenac Sodium), 1 APPLIC TOP BID, (Reported) Finerenone (Kerendia), 1 TAB PO DAILY, (Reported) Furosemide (Furosemide), 1 TAB PO DAILY, (Reported) Glipizide (Glipizide), 1 TAB PO BID, (Reported) Hydrocodone-Acetaminophen (Hydrocodone Bitartrate/AC 7.5-325 mg), 1 TAB PO TID PRN, (Reported) Insulin NPH (Human) (Isophane) (Humulin N), 95 UNIT SC DAILY, (Reported) Lidocaine Hcl (Lidocaine), 1 APPLIC TOP QID, (Reported) Metformin Hydrochloride (Metformin Hcl), 1 TAB PO BID, (Reported) Ondansetron HCl (Ondansetron Hydrochloride), 1 TAB PO BID, (Reported) Potassium Chloride (Klor-Con M10), 1 TAB PO DAILY, (Reported) Prasugrel HCl (Prasugrel), 1 TAB PO DAILY, (Reported) Pregabalin (Pregabalin), 1 CAP PO TID, (Reported) Probiotic Product (Probiotic Blend), 1 CAP PO DAILY, (Reported) Tirzepatide (Mounjaro), 7.5 MG SC QWEEKLY, (Reported) Yeast (S. Boulardii)(S. Cerevi (Probiotic), 250 MG PO DAILY Scheduled PRN Acetaminophen W/ Codeine (Acetaminophen/Codeine), 1 TAB PO Q6HR PRN for Post-op Pain, (Reported) Oxycodone W/ Acetaminophen (Oxycodone/Acetaminophen 10-300 mg), 1 TAB PO Q6HP PRN Durable Medical Equipment Continuous Blood Glucose Syste (Freestyle Leroy 2/Sensor/), (Reported), (DME) Discharge Statement: "Patient was advised to return to the ER or call 911 if any headaches, dizziness, shortness of breath, chest pain, abdominal pain, bleeding, fevers, or worsening of medical condition. Patient was counseled about treatment plan, medications, possible side effects, patientverbalized understanding. All questions were answered to the best of my ability. This discharge took greater then 30 minutes in planning, reviewing documentation, counseling the patient, and discussing with other team members." ASSESSMENT ASSESSMENT Assessment Date of Service: Feb 14, 2025 Billing Provider: EFFIE PRINCE MD Common Visit Codes: [id number]/[id number] DISCH DAY >30min ANNITA BARFIELD RESIDENT Feb 14, 2025 08:53 EFFIE PRINCE MD Feb 18, 2025 19:01
[2025-02-14 09:00] VITALS: BP 120/74; PULSE 76; RESP 15; TEMP 97.7; O2SAT 95
[2025-02-14] MEDS ORDERED: AUG875T PO (09:01)
[2025-02-14 13:26] VITALS: BP 120/74; PULSE 76; RESP 16; TEMP 97.7; O2SAT 95
== END 2025-02-14 14:05 | disposition home or self-care (01) | DRG 602 ==
LOC: ER 22:57 → OVERFLOW 02-12 03:14 → CENTRAL 02-12 14:47
PROVIDERS: ADMIT Student in an Organized Health Care Education/Training Program; ATTEND Emergency Medicine
DX: L03.116 Cellulitis of left lower limb (principal); N17.0 Acute kidney failure with tubular necrosis; I13.0 Hypertensive heart and chronic kidney disease with heart failure and stage 1 through stage 4 chronic kidney disease, or unspecified chronic kidney disease; M86.672 Other chronic osteomyelitis, left ankle and foot; I50.9 Heart failure, unspecified; I25.2 Old myocardial infarction; E11.65 Type 2 diabetes mellitus with hyperglycemia; E11.42 Type 2 diabetes mellitus with diabetic polyneuropathy; Z68.38 Body mass index [BMI] 38.0-38.9, adult; J44.9 Chronic obstructive pulmonary disease, unspecified; N18.9 Chronic kidney disease, unspecified; E11.22 Type 2 diabetes mellitus with diabetic chronic kidney disease; E11.69 Type 2 diabetes mellitus with other specified complication; E66.01 Morbid (severe) obesity due to excess calories; I25.10 Atherosclerotic heart disease of native coronary artery without angina pectoris; K21.9 Gastro-esophageal reflux disease without esophagitis; E78.00 Pure hypercholesterolemia, unspecified; Z88.8 Allergy status to other drugs, medicaments and biological substances; Z95.5 Presence of coronary angioplasty implant and graft; Z90.49 Acquired absence of other specified parts of digestive tract; Z79.84 Long term (current) use of oral hypoglycemic drugs; Z79.4 Long term (current) use of insulin; Z79.899 Other long term (current) drug therapy
CPT/HCPCS: 36415; 71045; 72220; 73700; 80048; 80053; 80076; 80202; 80307; 81001; 82306; 82565; 82607; 82962; 83036; 83605; 83735; 84100; 84443; 85025; 85610; 85730; 86141; 87040; 87081; 87205; 93925; G0378; J0692; J1815; J2470; J2543